=== PATIENT | female | born 1955 | race Caucasian/White ===

== ENCOUNTER 2025-08-08 13:00 | Inpatient (IN) | payer MEDICARE, OTHER, SELFPAY ==
[2025-08-08] VITALS (44 sets, daily range): BP systolic 108–157; BP diastolic 58–113; PULSE 50–87; RESP 16–27; TEMP 36.1–37; O2SAT 84–100; BMI 42.0
--- NOTE | 2025-08-08 12:50 | ECG_ITS ---
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 Measurements Intervals [place] Rate: 72 P: 0 NY: 0 QRS: -62 QRSD: 96 T: -15 QT: 364 QTc: 399 Interpretive Statements ATRIAL FIBRILLATION WITH ABERRANT CONDUCTION OR VENTRICULAR PREMATURE COMPLEXES LEFT AXIS DEVIATION [QRS AXIS < -30] PATTERN CONSISTENT WITH PULMONARY DISEASE INCOMPLETE RIGHT BUNDLE BRANCH BLOCK [90+ ms QRS DURATION, TERMINAL R IN V1/V2, 40+ ms S IN I/aVL/V4/V5/V6] SEPTAL MYOCARDIAL INFARCTION , OF INDETERMINATE AGE [40+ ms Q WAVE IN V1/V2] High lateral wall LA ST DEPRESSION, CONSIDER SUBENDOCARDIAL INJURY [0.1+ mV ST DEPRESSION] No previous ECG available for comparison Electronically Signed On 08-09-2025 17:29:10 UNIT SECRETARY by Hebert Alejandra M.D. [email or web address]
--- NOTE | 2025-08-08 13:01 | XACV_ITS ---
Exam Room: [facility] Ht: 152 cm Wt: 96 kg BSA: 2.07 m2 Gender: Female : 1955 Any Known Allergies: No known allergies Exam Priority: Routine Indication(s): - Acute anterior wall VA Procedure(s): Procedure Description: Diagnostic procedure Procedure Description: PCI procedure Procedure Description: Left Heart Catheterization Procedure Description: Left ventriculography Procedure Description: Drug Eluting Coronary Stent Procedure Description: PTCA Procedure Description: Coronary Thrombectomy Procedure Description: Miscellaneous Procedure Description: ACT Procedure Description: Coronary Angiography Diagnostic Cath Status: Emergency Diagnostic Findings * Left Main has no disease. * Circumflex has no disease. * Proximal Left Anterior Descending to Mid Left Anterior Descending: total occlusion, KESHA: 0 flow. * Mid Left Anterior Descending: total occlusion, KESHA: 0 flow. * Mid Right Coronary Artery: mild 40% stenosis, KESHA: 3 flow. * 1st Diagonal: total occlusion, KESHA: 0 flow. * Coronary angiography shows right dominance. PCI Status: Emergency PCI Indication: STEMI - Immediate PCI for STEMI Interventional Findings * Proximal Left Anterior Descending to Mid Left Anterior Descendin% stenosis treated with a AB TREK 2.50X12 RX BALLOON, MDT R MAXWELL 3.0X15 GUILLE, and MDT NC EUPHORA RX [id number] BALLOON. 0% residual stenosis, KESHA: 3 flow. * Mid Left Anterior Descendin% stenosis treated with a MDT R MAXWELL 2.5X30 GUILLE, and MDT NC EUPHORA RX [id number] BALLOON. 0% residual stenosis, KESHA: 3 flow. Conclusions 1. There is total occlusion coronary artery disease with two vessel disease. 2. The septal and anterior rizzo are akinetic. 3. The apex in the VILLALTA view is akinetic. 4. Severe left ventricular systolic dysfunction. Ejection fraction of 20%. 5. Proximal Left Anterior Descending to Mid Left Anterior Descending was treated with a Balloon, Drug Eluting Stent, and Balloon. 6. Mid Left Anterior Descending was treated with a Drug Eluting Stent, and Balloon. Recommendations * 1-Return to inpatient for close monitoring and routine cath care 2-Risk factor modification for secondary prevention 3-Statin and aspirin 81 mg life-long, if tolerated 4-Patient was pre-loaded with 600 mg of Plavix, continue Plavix 75mg p.o. daily for at least one year. We will assess at the end of one year again to continue if further or not 5-Continue optimal medical management 6-Follow up with Dr. Gracia in four weeks and your primary care in 10 days. Diagnostic RX Recommendation: PCI w/o planned CABG LV EDP: 42 mmHg Ventriculography Ejection Fraction: 20.0 % Pressures Phase:Rest AO : 113 / 83 ( 99 ) @ 1:30:00 PM 107 / 88 ( 95 ) @ 1:34:00 PM 128 / 82 ( 103 ) @ 1:44:00 PM 121 / 77 ( 98 ) @ 1:57:00 PM 115 / 77 ( 94 ) @ 2:06:00 PM 122 / 85 ( 97 ) @ 2:13:00 PM 130 / 73 ( 98 ) @ 2:20:00 PM 133 / 70 ( 99 ) @ 2:20:00 PM LV : 131 / 18 / 42 @ 2:19:00 PM 134 / 22 / 48 @ 2:20:00 PM 130 / 15 / 45 @ 2:20:00 PM Valves Phase:DefaultPhase AV : 0.0 @ 2:30:20 PM AV Mean Gradient: 0.0 @ 2:30:20 PM Clinical Evaluation EBL: 5mL-10mL Procedural Details Procedure Consent Obtained. Current Diagnosis : STEMI. Pre-Procedure Time Out. Identified patient by full name and date of as verbalized by the patient/guarantor. Does the consent match the physician's order: N/A Emergent. Accurate & Complete Informed Consent: N/A Emergent. Inpatient/Outpatient History & Physical on Chart: N/A Emergent. If H&P is completed, is and addenduem needed: N/A Emergent; If yes, is the addendum complete: N/A Emergent. Visualize and Verify Site with Patient/Guarantor: N/A. Relevant Radiology Images available: N/A Emergent. Pre-op teaching completed and patient verbalized understanding. The risks, benefits, and alternatives of sedation and/or procedure were discussed by physician. The patient agrees to continue. Procedure started. [facility] Clinical Fraility Score: 4: Vulnerable. 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 Chest Pain Symptom Assessment: Typical Angina Symptoms. Cardiovascular Instability: Yes, if yes, Persistant Ischemic Symptoms. Correct patient, site and procedure confirmed by cath team. Current diagnosis: STEMI. PERRLA. 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 Lungs clear x 5 lobes. IV Site on Arrival: 20 gauge in the right anticubital. IV Fluids: 0.9% NaCl at KVO. 0 mL infused prior to slab lifting supervisor. Oxygen started at 2liters/min via nasal canula. bilateral groins was prepped with chloroprep then draped in the usual sterile fashion. right radial was prepped with chloroprep then draped in the usual sterile fashion. Physician arrived. Baseline sample Acquired. HR: 64 BPM. AP Pads placed on the patient. Physician scrubbed in. Immediate Pre-Procedure Time Out. Correct Patient: N/A Emergent; Correct Procedure: N/A Emergent; Correct Site: N/A Emergent; Correct Patient Position: N/A Emergent; Correct Supplies: N/A Emergent; Dried Flammable Prep: N/A Emergent; Blood Products Available: N/A Emergent;. Lidocaine 1% infiltrated to the right radial. Arterial access obtained. A 5 st helenian TIG catheter in over wire. Multiple views taken of left coronary artery. Catheter redirected to the RCA. Multiple views taken of right coronary artery. Catheter removed over the exchange wire. 6 st helenian XB 3 guide catheter was inserted over the wire. PCI Indication: STEMI. Patient's family updated. Guide catheter out. 6 st helenian JL 3.5 guide catheter was inserted over the wire. PCI Indication : Immediate PCI for STEMI. Guide catheter out. Lidocaine 1% infiltrated to the right groin. Arterial access obtained with micropuncture set. 6 st helenian XB 3 guide catheter was inserted over the wire. Runthrough guidewire was advanced through the guide catheter to lesion in the mid Circ. A second runthrough guidewire was advanced through the guide catheter to lesion in the prox LAD. Inflation number : 1 A AB TREK 2.50X12 RX BALLOON was prepped and advanced across the Prox LAD , then inflated to 12 COURTNEY for 0:12 seconds. Inflation number: 2 The AB TREK 2.50X12 RX BALLOON was reinflated across the Prox LAD, to 12 COURTNEY for 0:09 seconds. Inflation number: 3 The AB TREK 2.50X12 RX BALLOON was reinflated across the Prox LAD, to 14 COURTNEY for 0:09 seconds. Monitoring of procedure taken over by Lokesh henderson [facility] at this time. Results checked. Balloon out. 2nd Runthrough wire in circumflex out. Admit Source: Emergency department. Pronto aspiration catheter in over the runthrough wire. Manual aspiration performed of LAD. Pronto catheter out. Results checked. Stent inserted to lesion in the mid LAD. Inflation Number : 1 A MERI Anton MAXWELL 2.5X30 GUILLE -Lot Number# [id number] Exp 12/24/2026 was prepped and advanced across the Mid LAD. The stent was deployed at 12 COURTNEY for 0:30 seconds. Stent balloon out over wire. Pt family updated by Monserrat Blount RN. Stent inserted to lesion in the prox LAD. Inflation Number : 4 A MERI Anton MAXWELL 3.0X15 GUILLE -Lot Number# [id number] Exp 02/06/2028 was prepped and advanced across the Prox LAD. The stent was deployed at 7 COURTNEY for 0:23 seconds. Results checked. Stent balloon out over wire. Inflation number : 2 A MDT NC EUPHORA RX [id number] BALLOON was prepped and advanced across the Mid LAD , then inflated to 12 COURTNEY for 0:17 seconds. Balloon inserted to lesion in the mid LAD. Inflation number: 3 The MDT NC EUPHORA RX [id number] BALLOON was reinflated across the Mid LAD, to 10 COURTNEY for 0:10 seconds. Inflation number: 4 The MDT NC EUPHORA RX [id number] BALLOON was reinflated across the Mid LAD, to 12 COURTNEY for 0:17 seconds. Inflation number: 5 The MDT NC EUPHORA RX [id number] BALLOON was reinflated across the Mid LAD, to 14 COURTNEY for 0:17 seconds. Results checked. Balloon out. Balloon inserted to lesion in the prox LAD. Inflation number : 5 A MDT NC EUPHORA RX [id number] BALLOON was prepped and advanced across the Prox LAD , then inflated to 12 COURTNEY for 0:14 seconds. Inflation number: 6 The MDT NC EUPHORA RX [id number] BALLOON was reinflated across the Prox LAD, to 16 COURTNEY for 0:17 seconds. Balloon out. Results checked. Guide catheter and Runthrough wire out. A 5 st helenian Angled Pig catheter in over wire. Pigtail catheter advanced across the LV. ACT drawn. Results 322 seconds. Therapeutic limits - pre-heparin administration 90-150 seconds and monitoring heparin during a vascular procedure >250 seconds. EDP Sample taken: LV 131/18,42; HR: 73 BPM; SpO2: 89%. Hand injection performed through the pigtail catheter. EDP Sample taken: LV 134/22,48; HR: 69 BPM; SpO2: 88%. Pullback taken: LV 130/15,45; AO 130/73(98); Mean: 0mmHg, Peak to Peak: 0mmHg, SEP: 6sec/min; HR: 69 BPM; SpO2: 88%. Catheter out. A Right femoral angiogram was performed to determine safe placement of closure device. A TR Band was successful obtaining hemostatsis at the Right Radial artery insertion site. A Suture was successful obtaining hemostatsis at the Right Femoral artery insertion site. Physician scrubbed out. Sheath(s) sutured into position with 2-0 silk and sterile 4x4's and Op-site applied over the site. No oozing or signs and symptoms of hematoma noted. Arterial sheath flushed and connected to tranducer and pressure bag with heparinized saline. Post Procedure: Pulses reassessed and unchanged. PERRLA. 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 No VTE prophylaxis required. Medication's Wasted: Other = Versed 1 mg. Medication's Wasted: Heparin = 4000 u. Medication's Wasted: Lidocaine 1% = 5 mL. Medication's Wasted: Nitro = 49.8 mg. Medication's Wasted: Other = Fentanyl 50 mcg. Total IV fluids: 50 mL. Post-op diagnosis: STEMI, 100% ostial occluded LAD x2 GUILLE, Good angiographic result. Complications: none. Estimated blood loss: 5mL-10mL. Responsiveness - Normal response to verbal stimuli; alert and oriented, PERRLA. Airway - Unaffected, no intervention required; spontaneous ventilation. Circulation: W/N/L, pulses unchanged. Nausea/Vomiting: No. Procedure completed. Patient transferred by bed to ICU. Vital chart was stopped. Access Site Site: Right Radial artery Sheath Size: 6 Fr Hemostasis Method: TR Band Hemostasis Success: Successful Site: Right Femoral artery Sheath Size: 6 Fr Hemostasis Method: Suture Hemostasis Success: Successful Procedure Medications Start: 1:22 PM Stop: 1:22 PM Medication: Versed Amount: 1 mg Route: I.V. Start: 1:23 PM Stop: 1:23 PM Medication: Zofran (ondansetron) Amount: 4 mg Route: I.V. Start: 1:27 PM Stop: 1:27 PM Medication: Nitrogylcerin Amount: 200 mcg Route: I.A. Start: 1:31 PM Stop: 1:31 PM Medication: Heparin Amount: 5000 units Route: I.V. Start: 1:37 PM Stop: 1:37 PM Medication: Fentanyl Amount: 50 mcg Route: I.V. Start: 1:55 PM Stop: 1:55 PM Medication: Aggrastat 12.5 mg/250 mL Amount: 48 ml Route: I.V. bolus Start: 1:57 PM Stop: 1:57 PM Medication: Aggrastat 12.5 mg/250 mL Amount: 17.3 ml/hr Route: I.V. drip Start: 2:21 PM Stop: 2:21 PM Medication: Lasix (furosemide) Amount: 60 mg Route: I.V. I, the attending physician, have reviewed and verified all procedure medications. Yes, all medications given per verbal order History/Risk Factors Hypertension: No Dyslipidemia: No Peripheral Arterial Disease (PAD): No Myocardial Infarction (VA): No Obesity: Yes Renal Disease: No Prior Interventions PCI: No CABG: No Valve Surgery: No Report Signatures Finalized by Cruz Gracia MD on 08/12/2025 02:59 PM
--- NOTE | 2025-08-08 13:10 | W.ED.CHESTPA ---
HPI - Chest Pain General: Stated Complaint: Chest Pain Source: patient and EMS Mode of arrival: EMS Limitations: no limitations History of Present Illness: 70-year-old female having chest pain starting today. She states that pains been a pressure type pain in the center of her chest patient is a STEMI alert by EMS she has received nitro aspirin along with morphine. She states she continues to have pain she denies any fevers Related Data Home Medications ?Medication ?Instructions ?Recorded ?Confirmed levothyroxine 125 mcg capsule 125 mcg PO DAILY 11/25/20 10/05/24 Previous Rx's ?Medication ?Instructions ?Recorded albuterol sulfate 90 mcg/actuation 1 inh inhalation QID PRN shortness 10/05/24 aerosol inhaler of breath or wheezing #6.7 grams fluticasone propionate 50 2 spray intranasal DAILY #16 grams 10/05/24 mcg/actuation nasal spray,suspension (Flonase Allergy Relief) prednisone 20 mg tablet 40 mg (2 x 20 mg) PO DAILY 5 days 10/05/24 #10 tabs Allergies Allergy/AdvReac Type Severity Reaction Status Date / Time No Known Allergies Allergy Verified 10/05/24 16:05 Review of Systems Card: Reports: chest pain [facility] ED PFSH: Social History Smoking and tobacco/nicotine status: never used tobacco/nicotine Physical Exam Const: COMMON NORMALS: patient oriented x3 and healthy appearing HENMT: COMMON NORMALS: normocephalic and atraumatic HEAD & SCALP: normocephalic and atraumatic Eye: COMMON NORMALS: conjunctivae normal CONJUNCTIVA: Yes conjunctivae normal Neck/C-Spine: COMMON NORMALS: full ROM and supple Chest: COMMONS NORMALS: normal inspection of the chest and normal palpation of entire chest wall Resp: COMMON NORMALS: normal respiratory effort, No retractions, No use of accessory muscles and clear to auscultation bilaterally AUSCULTATION: clear to auscultation bilaterally Cardio: COMMON NORMALS: regular rate, regular rhythm and No murmurs present (Cardio) RATE: regular rate RHYTHM: regular rhythm Extremity: COMMON NORMALS: normal to inspection and full ROM Neuro: COMMON NORMALS: patient oriented x3, moves all extremities and no focal motor deficits Psych: COMMON NORMALS: mental status grossly normal, Normal thought process present and cooperative THOUGHT PROCESS: Normal thought process present Skin: COMMON NORMALS: no rashes or lesions noted and no wounds GENERAL SKIN EXAM: no rashes or lesions noted MDM - Chest Pain Medical Decision Making Patient presents for chest pain STEMI was alerted by EMS in the field EKG here is consistent with ST elevation I have spoke to manager benefit Dr. Polo who is in the ER currently and is going to take patient to the [employer] [facility]. Patient had already received aspirin and route did give her Plavix along with heparin I did interpret her EKG here at 1305 showed normal sinus rhythm heart rate [address] elevation in aVL along with V1 and V2 with depressions in leads II and III and aVF Medical Records I reviewed the patient's medical records. All radiology interpretation(s) finalized by discharge Discharge Plan Discharge Patient Disposition: Admitted As Inpatient Clinical Impression: ST elevation (STEMI) myocardial infarction Condition: Stable Coding Level of Care Code ED Multi Spindle Operator for Chg Fwpreet Heart Score HEART Score Components History: Highly Suspicious EKG: Significant ST-deviation Age: 65 or more yrs Risk Factors: 1 or 2 Risk Factors Troponin: Baseline Trop >45 ng/L HEART Score RESULT HEART Score: 9
[2025-08-08] MEDS: heparin 5,000 unit/mL INJ 1 mL 4000 UNIT IVP (13:12)
--- NOTE | 2025-08-08 13:12 | PM.HP ---
Providers/Chief Complaint Admitting Physician: Cruz Gracia MD Primary Care Provider: Norma Retana DO Chief Complaint: Chest Pain History of Present Illness Yaritza Hernandez is a 70 year old female past medical history significant for hypothyroidism obesity denies any prior history of tobacco started having chest pain around noon, pain over next 30 minutes became more severe and intense therefore she called EMS. Twelve-lead EKG was concerning for ST elevation in the high lateral leads with reciprocal inferior ST depression. STEMI alert was called. I saw the patient in the ER upon arrival. Patient is being loaded with 600 mg of Plavix and 4000 units of heparin. Will proceed with urgent left heart cath/PCI if indicated Medications/Allergies Home Medications ?Medication ?Instructions ?Recorded ?Confirmed ?Last Taken ?Type levothyroxine 125 mcg capsule 125 mcg PO DAILY 11/25/20 10/05/24 Unknown History albuterol sulfate 90 mcg/actuation 1 inh inhalation QID PRN shortness 10/05/24 10/05/24 Unknown Rx aerosol inhaler of breath or wheezing #6.7 grams fluticasone propionate 50 2 spray intranasal DAILY #16 grams 10/05/24 10/05/24 Unknown Rx mcg/actuation nasal spray,suspension (Flonase Allergy Relief) prednisone 20 mg tablet 40 mg (2 x 20 mg) PO DAILY 5 days 10/05/24 10/05/24 Unknown Rx #10 tabs Allergies Allergy/AdvReac Type Severity Reaction Status Date / Time No Known Allergies Allergy Verified 10/05/24 16:05 PFSH Acute PFSH: Medical History (Updated 08/08/25 @ 13:15 by Cruz Gracia MD) Obesity Hypothyroid Social History Smoking and tobacco/nicotine status: never used tobacco/nicotine Vitals/I&O/Wt Last Vital Signs Temp 97.8 F 08/08/25 13:04 Pulse 72 08/08/25 13:04 Resp 20 H 08/08/25 13:04 Pulse Ox 89 L 08/08/25 13:04 O2 Del Method Room Air 08/08/25 13:04 Weight last 48 hrs Weight 211 lb Weight 211 lb Physical Exam Const: OTHER: GENERAL: Patient is alert, awake and oriented x3. Moderate distress HEART: Regular S1 and S2. No murmur, rub or gallop. LUNGS: Clear to auscultate bilaterally. CENTRAL NERVOUS SYSTEM: Grossly nonfocal. EXTREMITIES: Lower extremities with out edema bilaterally. A&P Assessment and plan 1. ST elevation (STEMI) myocardial infarction: 2. Hypothyroid: 3. Obesity: Plan: Will proceed with urgent left heart cath/PCI if indicated. Treatment as per ACS protocol is initiated. Further plan will be devised as per progress of the patient PDMP PDMP Reviewed: Not Reviewed Attestations Medical Necessity Statement*: I am expecting her stay to cross more than 2 midnights Coding Level of Care Code Acute Code for Chg Fwd Diagnoses ST elevation (STEMI) myocardial infarction I21.3 Hypothyroid E03.9 Obesity E66.9
[2025-08-08] MEDS: morphine 4 mg/mL SDV 1 mL IVP (13:13)
[2025-08-08 13:20] LABS: Hematocrit 44.6 % (36-47); Hemoglobin 14.00 g/dL (11.27-16.99); Mean Corpuscular HGB Conc 31.4 g/dL (30-55); Mean Corpuscular Hemoglobin 27.6 pg (27-33); Mean Corpuscular Volume 87.8 fl (85-98); Nucleated Red Blood Cells % 0 %; Platelet Count 258 10^3/cmm (157-399); Red Blood Count 5.08 10^6/uL (3.85-5.65); White Blood Count 11.78 10^3/uL (3.29-11.43)
[2025-08-08 13:41] LABS: Alanine Aminotransferase 18 U/L (0-33); Albumin Level 4.3 g/dL (3.5-5.2); Alkaline Phosphatase 94 U/L (35-105); Anion Gap 17.9 (5-19); Aspartate Amino Transferase 19 U/L (0-32); Blood Urea Nitrogen 14 mg/dL (8-23); Calcium 9.2 mg/dL (8.5-10.5); Carbon Dioxide 22 mmol/L (22-29); Chloride 103 mmol/L (98-107); Globulin 2.1 g/dL (1.3-4.6); Glucose 137 mg/dL (65-115); Lipase 27 U/L (13-60); Osmolality Calculated 289 mOsm/kg (285-295); Potassium 4.9 mmol/L (3.5-5.1); Sodium 138 mmol/L (136-145); Total Protein 6.4 g/dL (6.6-8.7)
[2025-08-08 13:42] LABS: Troponin(5th) Baseline 13 ng/L (0-10)
--- NOTE | 2025-08-08 14:27 | PC.RESP ---
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
--- NOTE | 2025-08-08 14:32 | USCV_ITS ---
Yaritza Hernandez Age: 70 Gender: F : 1955 Exam Date: 08/08/2025 18:41 Ordering Phys: Cruz Gracia MD ([email or web address]) Technologist: ADRIANA Exam Location: [facility] [place] Indication: post cardiac catheterization. s/p STEMI BP: 145 / 84 HR: 53 Rhythm: Sinus bradycardia with occasional strings of Afib Technical Quality: Adequate MEASUREMENTS (Male / Female) Normal Values 2D ECHO LV Diastolic Diameter PLAX 4.6 cm 4.2 - 5.9 / 3.9 - 5.3 cm IVS Diastolic Thickness 1.2 cm 0.6 - 1.0 / 0.6 - 0.9 cm IVS Systolic Thickness 2.0 cm LVPW Diastolic Thickness 1.1 cm 0.6 - 1.0 / 0.6 - 0.9 cm LVPW Systolic Thickness 1.4 cm LVOT Diameter 1.6 cm LV Ejection Fraction 2D Teich 58.5 % LV Ejection Fraction MOD 4C 34.0 % LV Ejection Fraction MOD 2C 47.2 % LV Ejection Fraction 2C AL 46.5 % LA Diameter 3.9 cm Aorta at Sinotubular Diameter 2.1 cm IVC Diameter 1.5 cm M-MODE LA Ao Ratio MM 1.7 AV Cusp Separation MM 1.7 cm DOPPLER AV Peak Velocity 130.0 cm/s LVOT Peak Velocity 91.0 cm/s AV Area Cont Eq vti 1.5 cm squared AV Area Cont Eq pk 1.5 cm squared MV Peak Velocity 93.0 cm/s MV Area PHT 3.5 cm squared Mitral E to A Ratio 1.2 TV Peak E Velocity 38.0 cm/s PV Peak Velocity 98.0 cm/s FINDINGS Left Ventricle Mildly increased left ventricular cavity size. Severely decreased left ventricular systolic function. Left ventricular ejection fraction is estimated at 30 %. There is mid to distal anterior apical akinesis suggestive of lesion in LAD territory.Grade II/IV diastolic dysfunction, moderately elevated filling pressures. Right Ventricle Normal right ventricular size and systolic function. Right Atrium Normal right atrial size. Left Atrium Normal left atrial size. IA Septum Normal appearance of the interatrial septum. Mitral Valve Moderately thickened mitral valve. No mitral valve stenosis. Moderate mitral annular calcification. Trace mitral valve regurgitation. Aortic Valve Moderate aortic valve calcification. No aortic valve stenosis. Trace aortic valve regurgitation. Tricuspid Valve Normal tricuspid valve structure. No tricuspid valve stenosis or regurgitation. Normal pulmonary pressure. Pulmonic Valve Normal pulmonic valve structure. No pulmonic valve stenosis or regurgitation. Pericardium No pericardial effusion. Aorta Normal diameter of the aortic root and ascending thoracic aorta. IVC Normal IVC diameter. CONCLUSIONS Mildly increased left ventricular cavity size. Severely decreased left ventricular systolic function. Left ventricular ejection fraction is estimated at 30 %. There is mid to distal anterior apical akinesis suggestive of lesion in LAD territory.Grade II/IV diastolic dysfunction, moderately elevated filling pressures. Moderate aortic valve calcification. No aortic valve stenosis. Trace aortic valve regurgitation. There is no pericardial effusion. Right atrial pressure is around 10 mm of mercury. Cruz Gracia MD (Electronically Signed) Final Date: 09 August 2025 07:27 S
--- NOTE | 2025-08-08 14:59 | ECG_ITS ---
[facility] Date: 2025-08-08 Pat Name: Yaritza Hernandez Department: Room: ICU01 Gender: Female [employer]: : 1955 Requested By: Cruz Gracia Order Number: [id number] Sammy MD: Hebert Alejandra M.D. Measurements Intervals [place] Rate: 74 P: 89 NY: 154 QRS: -72 QRSD: 112 T: 96 QT: 355 QTc: 395 Interpretive Statements SINUS RHYTHM LEFT ANTERIOR FASCICULAR BLOCK [QRS AXIS <= -45, QR IN I, RS IN II] ANTEROLATERAL MYOCARDIAL INFARCTION , PROBABLY RECENT [40+ ms Q WAVE IN I/aVL/V3-V6] ACUTE HI INTERPRETATION BASED ON A DEFAULT AGE OF 40 YEARS Compared to ECG 08/08/2025 13:05:50 Left anterior fascicular block now present. Atrial fibrillation no longer present Ventricular premature complex(es) no longer present Aberrant conduction of supraventricular beat(s) no longer present Incomplete right bundle-branch block no longer present Myocardial infarct finding still present Electronically Signed On 08-09-2025 17:50:02 EDGE GLUE MACHINE TENDER by Hebert Alejandra M.D. [id number]
[2025-08-08] MEDS: FUROsemide 10 mg/mL SDV 4mL 40 MG IVP (15:02)
[2025-08-08 16:11] LABS: Troponin(5th) Baseline 3340 ng/L (0-10)
--- NOTE | 2025-08-08 16:48 | PC.NURSE ---
Aggrastat drip finished at 1630.
--- OUTSIDE RECORDS SUMMARY | 2025-08-08 17:18 | XMS_ITS | Clinical Summary ---
Author Organization [facility] Address [address] [facility] Attn: [place] [address] Care Team Providers Care Design Sales Consultant Name Role Phone Naga Sandhu MD Primary Care Provider [phone] Allergies No known active allergies Medications triamcinolone acetonide (KENALOG) 0.5 % OintmentIndicatio ns:Irritant contact dermatitis due to other chemical products,Urticari a,Contact dermatitis, unspecified contact dermatitis type, unspecified trigger Apply to affected area 2 times daily. 60 Gram 2 2 Active fluticasone propionate (FLONASE) 50 mcg/spray [place], Suspension nasal inhaler Administer 2 Sprays in each nostril daily. shake before using 5 Active diazePAM (VALIUM) 5 mg tabletIndications :RLS (restless legs syndrome) Take 1 Tablet (5 mg) by mouth nightly as needed for Anxiety. 30 Tablet 5 Active levothyroxine 137 mcg tabletIndications :Hypothyroidism due to acquired atrophy of thyroid TAKE 1 TABLET(137 MCG) BY MOUTH DAILY IN THE MORNING 90 Tablet 3 5 Active lidocaine/hydroco rtisone ac (lidocaine HCl-hydrocortison ac) 3 %-2.5 % (7 gram) GelIndications:Ex ternal hemorrhoid Insert 1 Applicator by rectum 2 times daily as needed for Pain or Other (See Comment). 1 Each 5 5 Active albuterol sulfate HFA 90 mcg/actuation aerosol inhalerIndication s:Severe persistent asthma without complication (CMS/HCC) Take 2 Puffs by inhalation every 6 hours as needed for Shortness of Breath. 8.5 Gram 5 Active fluticasone propion-salmetero L (Advair HFA) 45-21 mcg/actuation HFA Aerosol InhalerIndication s:Severe persistent asthma without complication (CMS/HCC) Take 2 Puffs by inhalation every 12 hours. 8 Gram 5 5 Active Active Problems Problem Noted Date Diagnosed Date Hypothyroidism 08/11/2016 External hemorrhoid 05/09/2015 Morbid obesity with BMI of 40.0-44.9, adult 04/2015 Lower leg edema 04/16/2014 RLS (restless legs syndrome) 04/16/2014 Asthma 03/25/2010 Encounters Date Type Department Care Team Description 07/17/2025 External Device Data [facility] ABSTRACTION Provider, Abstract 06/20/2025 External Device Data [facility] ABSTRACTION Provider, Abstract 06/15/2025 Medication Prior Auth Encounter [facility] [address] [place] [address] [place] [address] Shantell Chanel, PHARMACIST 06/14/2025 Medication Prior Auth Encounter [facility] [address] [place] [address] [place] [address] Shantell Chanel, PHARMACIST Severe persistent asthma without complication (CMS/HCC) (Primary Dx) 06/14/2025 Results Follow-Up [address] [phone] Pearl Coy FNP TSH, T4 FREE 06/13/2025 1:00 PM CDT Office Visit [address] [phone] Hypothyroidism, unspecified type (Primary Dx); Severe persistent asthma without complication (CMS/HCC); Morbid obesity with BMI of 40.0-44.9, adult; Elevated blood pressure reading without diagnosis of hypertension; Screening mammogram, encounter for; Need for pneumococcal vaccine; Need for influenza vaccination; Other buttermaker helper (current) drug therapy; Mild intermittent asthma, unspecified whether complicated 05/15/2025 External Device Data [facility] ABSTRACTION Provider, Abstract from Last 3 Months Immunizations Immunization Administration Dates Next Due (PREVNAR 20)(6 WKS UP) PNEUM OCOCCAL CONJUGATE VACCINE 20-VALENT (PCV20), POLYSACCHARIDE [id number] CONJUGATE, ADJUVANT 0.5 ML (PF) IM 06/13/2025 (SPIKEVAX) (12 YRS UP PRIMAR Y SERIES) COVID-19 VACCINE - [id number](PF) 100 MCG/0.5 ML IM SUSP 01/31/2021,12/18/2020 INFLUENZA VACCINE HIGH DOSE QUADRIVALENT 65 YR UP PF IM 06/16/2022 INFLUENZA VACCINE HIGH DOSE TRIVALENT SPLIT VIRUS, (65 YR UP), 0.5ML (PF), IM 06/13/2025 INFLUENZA VACCINE QUADRIVALENT 6 MOS UP PF IM ,07/02/2021 Family History Medical History Relation Name Comments Other Father Diabetes Mother Breast Cancer Neg Hx Relation Name Status Comments Father Mother Alive Social History Tobacco Use Types Packs/Day Years Used Date Smoking Tobacco: Former Cigarettes 0.3 Q uit: 02/28/2012 Smokeless Tobacco: Never Tobacco Cessation:Counseling Given: Not Answered Alcohol Use Standard Drinks/Week Comments Yes 0.8 (1 standard drink = 0.6 oz p ure alcohol) Financial Resource Strain Answer Date R ecorded How hard is it for you to pa y for the very basics like food, housing, medical care, and heating? Not hard at all 06/16/2022 Food Insecurity Answer Date Recorded In the past 12 months, have you worried that your food would run out before you had money to buy more? Never true 06/16/2022 In the past 12 months, did y ou run out of food and didn't have money to buy more? Never true 06/16/2022 Transportation Needs Answer Date Record ed In the past 12 months, has l ack of transportation kept you from medical appointments or from getting medications? No 06/16/2022 Lack of Transportation (Non-Medical) Not on file 06/16/2022 Comments No Sex and Gender Information Value Date Recorded Sex Assigned at Not on file Legal Sex Female 2:13 AM METHODOLOGIST Gender Identity Not on file Sexual Orientation Not on file Last Filed Vital Signs Vital Sign Reading Time Taken Comments Blood Pressure 158/58 06/13/2025 1:00 PM CDT Pulse 56 06/13/2025 12:57 PM CDT Temperature 36.5 C (97.7 F) 06/13/2025 12:57 PM CDT Respiratory Rate 16 11/21/2024 3:12 PM CDT Oxygen Saturation 92% 06/13/2025 12:57 PM CDT Inhaled Oxygen Concentration - - Weight 95.3 kg (210 lb 3.2 oz) 06/13/2025 12:57 PM CDT Height 152.4 cm (5') 06/13/2025 12:57 PM CDT Body Mass Index 41.05 06/13/2025 12:57 PM CDT Plan of Treatment Upcoming Encounters Date Type Department Care Team (Late st Contact Info) Description 12/25/2025 10:20 AM CDT Office Visit [address] [phone] Naga Sandhu MD [address] [place] [phone] Health Maintenance Due Date Last Done Comments Pre-Diabetes and Diabetes Screening 1955 FIT/FOBT Q 1 YEAR (AUTO ORDER) 1974 DTAP/TDAP/TD VACCINES (1 - Tdap) 1975 COLORECTAL CANCER SCREENING (AUTO ORDER) 2001 COLORECTAL SCREENING 2001 FIT/FOBT Q 1 year 2001 Flex Sig/CT Colonography Q 5 years 2001 RSV VACCINE (60+ or ) (1 - Risk 50-74 years 1-dose series) 2006 ZOSTER VACCINE (1 of 2) 2006 BREAST CANCER SCREENING 08/01/2013 08/01/20 12, 2011, 04/23/2010, Additional history exists OSTEOPOROSIS SCREENING 2021 COVID-19 Vaccine (3 - 2024-2 6 season) 2025 01/31/2021, 12/18/2020 Traditional Medicare (ACO) A nnual Wellness Visit 11/22/2025 11/21/2024, 09/28/2023, 06/16/2022 Colorectal Cancer Screening 10/16/2027 FIT-DNA Q 3 years 10/16/2027 10/16/2024 FIT/ DNA Q 3 YEARS (AUTO ORDER) 10/16/2027 , 10/15/2024 Colorectal Cancer Screening (AUTO ORDER) 10/15/2029 FLEX SIG/CT COLONOGRAPHY Q 5 YEARS (AUTO ORDER) 10/15/2029 10/15/2024, 10/15/2024 INFLUENZA VACCINE Completed 06/13/2025, , 06/16/2022, Additional history exists PNEUMOCOCCAL VACCINE 50+ YEARS Completed 06/13/2025 Procedures Procedure Name Priority Date/Time Associated Diagnosis Comments T4 FREE Routine 06/13/2025 1:39 PM CDT Hypothyroidism, unspecified type TSH Routine 06/13/2025 1:39 PM CDT Hypothyroidism, unspecified type COLON CANCER SCREEN, STOOL DNA Routine 10/16/2024 1:15 AM METHODOLOGIST Encounter for colorectal cancer screening MAMMO SCREEN BILAT W OR WO CAD Routine 08/01/2012 9:46 AM METHODOLOGIST Other screening mammogram from Last 3 Months or Most Recently Relevant to Health Maintenance Results * TSH (06/13/2025 1:39 PM CDT) TSH 2.69 0.40 - 4.50 mIU/L [facility] Comment: FASTING:NO FASTING: NO Test Performed at: [facility] [id number] [place], [place] [address] [address] Mark Hand MD Blood 06/13/2025 1:39 PM CDT 06/13/2025 1:39 PM CDT us Pearl BLUE CHEMISTRY ORDERABLES Final Res ult [facility] [phone] [facility] [id number] [place] [phone] * T4 FREE (06/13/2025 1:39 PM CDT) [facility] T4 FREE 1.3 0.8 - 1.8 ng/dL [facility] Comment: Test Performed at: [facility] [address] [phone] Mark Hand MD Blood 06/13/2025 1:39 PM CDT 06/13/2025 1:39 PM CDT Pearl [employer] SEO COORDINATOR CHEMISTRY ORDERABLES Final Res ult [facility] [phone] [facility] [id number] [phone] * COLON CANCER SCREEN, STOOL DNA (10/16/2024 1:15 AM METHODOLOGIST) [facility] COLOGUARD RESULT Negative Negative [facility] Comment: NEGATIVE TEST RESULT. A negative Cologuard result indicates a low likelihood that a colorectal cancer (CRC) or advanced adenoma (adenomatous polyps with more advanced pre-malignant features) is present. The chance that a person with a negative Cologuard test has a colorectal cancer is less than 1 in 1500 (negative predictive value >99.9%) or has an advanced adenoma is less than 5.3% (negative predictive value 94.7%). These data are based on a prospective cross-sectional study of 10,000 individuals at average risk for colorectal cancer who were screened with both Cologuard and colonoscopy. (Willian Scott al, N Engl J Med 2014;370(14):9253-9207) The normal value (reference range) for this assay is negative. COLOGUARD RE-SCREENING RECOMMENDATION: Periodic colorectal cancer screening is an important part of preventive healthcare for asymptomatic individuals at average risk for colorectal cancer. Following a negative Cologuard result, the [place] [employer] Society and U.S. Multi-Society Task Force screening guidelines recommend a Cologuard re-screening interval of 3 years. References: [place] [employer] Guideline for Colorectal Cancer Screening: https://www.cancer.org/cancer/tgfyi-clqhfu-mnazug/zuzkjypah-rklfrvnib-agxdxro/ac s-rec ommendations.html.; Han DK, Pat CR, Daksha GarciaK, Colorectal Cancer Screening: Recommendations for Physicians and Patients from the U.S. Multi-Society Task Force on Colorectal Cancer Screening , Am J Gastroenterology 2017; 112:0870-0901. TEST DESCRIPTION: Composite algorithmic analysis of stool DNA-biomarkers with hemoglobin immunoassay. Quantitative values of individual biomarkers are not reportable and are not associated with individual biomarker result reference ranges. Cologuard is intended for colorectal cancer screening of adults of either sex, 45 years or older, who are at average-risk for colorectal cancer (CRC). Cologuard has been approved for use by the U.S. FDA. The performance of Cologuard was established in a cross sectional study of average-risk adults aged 50-84. Cologuard performance in patients ages 45 to 49 years was estimated by sub-group analysis of near-age groups. Colonoscopies performed for a positive result may find as the most clinically significant lesion: colorectal cancer [4.0%], advanced adenoma (including sessile serrated polyps greater than or equal to 1cm diameter) [20%] or non- advanced adenoma [31%]; or no colorectal neoplasia [45%]. These estimates are derived from a prospective cross-sectional screening study of 10,000 individuals at average risk for colorectal cancer who were screened with both Cologuard and colonoscopy. (Willian Scott al, N Engl J Med 2014;370(14):5348-8402.) Cologuard may produce a false negative or false positive result (no colorectal cancer or precancerous polyp present at colonoscopy follow up). A negative Cologuard test result does not guarantee the absence of CRC or advanced adenoma (pre-cancer). The current Cologuard screening interval is every 3 years. ([place] [employer] Society and U.S. Multi-Society Task Force). Cologuard performance data in a 10,000 patient pivotal study using colonoscopy as the reference method can be accessed at the following location: www.[employer]ino.[employer]results. Additional description of the Cologuard test process, warnings and precautions can be found at www.[employer] Stool STOOL SPECIMEN / Unknown 10/16/2024 1:15 AM METHODOLOGIST 10/17/2024 7:11 PM METHODOLOGIST Sierra Tran SEO COORDINATOR BODY FLUIDS AND STOOLS Final Result [facility] # [id number] [address] , [address] [place] [address] * MAMMO SCREEN BILAT W OR WO CAD (08/01/2012 9:46 AM METHODOLOGIST) Anatomical Region Laterality Modality Breast Bilateral Other Narrative 08/02/2012 2:01 PM METHODOLOGIST Bilateral Mammogram Reason for Exam: Screening Comparison: Comparison is made with prior exam(s). Findings: Bilateral CC and MLO views were obtained. This examination was reviewed with the aid of a computer-aided detection system(CAD). The breast tissue density is fatty. No significant new findings since the prior mammogram(s). Procedure Note Jose Brock MD - 10/30/2022 Bilateral Mammogram Reason for Exam: Screening Comparison: Comparison is made with prior exam(s). Findings: Bilateral CC and MLO views were obtained. This examination was reviewed with the aid of a computer-aided detection system(CAD). The breast tissue density is fatty. No significant new findings since the prior mammogram(s). Noram Retana DO MAMMO ORDERABLES Final Resu lt from Last 3 Months or Most Recently Relevant to Health Maintenance Additional Health Concerns Infection Onset Date Last Indicated MRSA Comment:Lt leg wound 04/27/17 04/27/2017 04/30/2017 Insurance MEDICARE PART A AND B BCBS SUPP [employer] Medicare Part D Care Teams Design Sales Consultant Relationship Specialty Start Date End Date Naga Sandhu MD [address] [place] [phone] PCP - General Family Practice 09/28/23
--- OUTSIDE RECORDS SUMMARY | 2025-08-08 17:18 | XMS_ITS | Encounter Summary ---
Author Organization [facility] Address [address] [place] [address] Care Team Providers Care Project Estimator Name Role Phone Norma Retana DO Primary Care Provider [phone] Reason for Referral * Outpatient Services (Routine) - Closed Specialty Diagnoses / Procedures Referred By Contbradley t Referred To Contact Diagnoses Other screening mammogram Procedures MAMMO DIGITAL SCREEN BILAT Norma Retana DO [address] [place] [address] Phone: tel: fax: [facility] Pre-Registration [place] CALL TO MAKE APPOINTMENT ONLY [address] [place] [address] Phone: tel: fax: Referral ID Status Reason Start Date Expiration Date Visits Re quested Visits Authorized [id number] Closed 06/20/2012 06/20/2013 1 1 Encounter Details Date Type Department Care Team (Latest Contact Info) Description 06/20/2012 Ancillary Orders [facility] Pre-Registration [place] CALL TO MAKE APPOINTMENT ONLY [address] [place] [address] Norma Retana DO [address] [place] [address] Other screening mammogram Social History Tobacco Use Types Packs/Day Years Used Date Smoking Tobacco: Every Day Cigarettes 0.3 20 Alcohol Use Standard Drinks/Week Comments No 0 (1 standard drink = 0.6 oz pur e alcohol) Comments No Sex and Gender Information Value Date Recorded Sex Assigned at Not on file Legal Sex Female 6:02 AM DOLLY OPERATOR Gender Identity Not on file Sexual Orientation Not on file Occupation Industry Job Start Date Job End Date Not on file Not on file Not on file Not on file documented as of this encounter Plan of Treatment Not on file documented as of this encounter Results * MAMMO DIGITAL SCREEN BILAT (08/01/2012 9:46 AM DOLLY OPERATOR) Anatomical Region Laterality Modality Breast Bilateral Mammography Narrative 08/02/2012 2:03 PM DOLLY OPERATOR Bilateral Mammogram Reason for Exam: Screening Comparison: Comparison is made with prior exam(s). Findings: Bilateral CC and MLO views were obtained. This examination was reviewed with the aid of a computer-aided detection system(CAD). The breast tissue density is fatty. No significant new findings since the prior mammogram(s). Procedure Note Jose Brock MD - 08/02/2012 Bilateral Mammogram Reason for Exam: Screening Comparison: Comparison is made with prior exam(s). Findings: Bilateral CC and MLO views were obtained. This examination was reviewed with the aid of a computer-aided detectionsystem(CAD). The breast tissue density is fatty. No significant new findings since the prior mammogram(s). Norma Retana DO MAMMO ORDERABLES Final Resu lt documented in this encounter Visit Diagnoses Diagnosis Other screening mammogram Other screening mammogram documented in this encounter Additional Health Concerns Infection Onset Date Last Indicated Resolved Time MRSA Comment:Lt leg wound 04/27/17 04/27/2017 04/27/2017 documented as of this encounter Care Teams Project Estimator Relationship Specialty Start Date End Date Norma Retana DO [address] [place] [address] PCP - General Family Practice 03/24/10 documented as of this encounter
--- OUTSIDE RECORDS SUMMARY | 2025-08-08 17:18 | XMS_ITS | Encounter Summary ---
Author Organization [facility] Address [address] [place] [address] Care Team Providers Care Pick Up And Delivery Driver Name Role Phone MazinNorma Katrin SOLIS Primary Care Provider Encounter Details Date Type Department Care Team (Late st Contact Info) Description 12/28/2008 Ancillary Orders [facility] [address] [place] [address] Balaji Madrid DO [address], [place] [phone] Screening Mammogram Social History Tobacco Use Types Packs/Day Years Used Date Smoking Tobacco: Never Assessed Comments Unknown Sex and Gender Information Value Date Recorded Sex Assigned at Not on file Legal Sex Female 6:02 AM DISPLAY DESIGNER OUTSIDE Gender Identity Not on file Sexual Orientation Not on file documented as of this encounter Plan of Treatment Not on file documented as of this encounter Results * MAMMO SCREENING BILAT (04/10/2009 12:55 PM CDT) Anatomical Region Laterality Modality Breast Bilateral Mammography Narrative 04/11/2009 4:33 PM CDT Bilateral Mammogram Reason for Exam: Screening Comparison: Comparison is made with the prior exam(s) dated 2.10.04 Findings: Bilateral CC and MLO views were obtained. This examination was reviewed with the aid of a computer-aided detection system(CAD). The breast tissue density is average. No significant new findings since the prior mammogram(s). Procedure Note Annabelle Salas MD - 04/11/2009 Bilateral Mammogram Reason for Exam: Screening Comparison: Comparison is made with the prior exam(s) dated 10.01.04 Findings: Bilateral CC and MLO views were obtained. This examination was reviewed with the aid of a computer-aided detectionsystem(CAD). The breast tissue density is average. No significant new findings since the prior mammogram(s). Balaji Madrid DO MAMMO ORDERABLES Final R esult documented in this encounter Visit Diagnoses Diagnosis Screening mammogram Other screening mammogram Screening mammogram Other screening mammogram documented in this encounter Additional Health Concerns Infection Onset Date Last Indicated Resolved Time MRSA Comment:Lt leg wound 04/27/17 04/27/2017 04/27/2017 documented as of this encounter Care Teams Pick Up And Delivery Driver Relationship Specialty Start Date End Date Norma Retana DO [address] [place] [address] PCP - General Family Practice 03/24/10 documented as of this encounter
--- OUTSIDE RECORDS SUMMARY | 2025-08-08 17:18 | XMS_ITS | Clinical Summary ---
Author Organization [facility] Address [address] [place] [address] Phone Care Team Providers Care Lokie Engineer Name Role Phone MazinNorma Katrin SOLIS Primary Care Provider [phone] Allergies No known active allergies Medications HYDROCHLOROTHIAZI DE 25 mg tabletIndications :Lower leg edema TAKE 1 TABLET BY MOUTH DAILY 90 Tablet 4 0 Active albuterol HFA 90 mcg inhalerIndication s:Mild intermittent asthma, unspecified whether complicated Take 2 Puffs by inhalation every 6 hours as needed for Shortness of Breath. 8.5 Gram 5 1 Active lidocaine/hydroco rtisone ac (lidocaine HCl-hydrocortison ac) 3 %-2.5 % (7 gram) GelIndications:Ex ternal hemorrhoid Insert 1 Applicator by rectum 2 times daily as needed for Other (See Comment). 1 Each 5 1 Active triamcinolone acetonide (KENALOG) 0.5 % OintmentIndicatio ns:Irritant contact dermatitis due to other chemical products,Urticari a,Contact dermatitis, unspecified contact dermatitis type, unspecified trigger Apply to affected area 2 times daily. 30 Gram 1 1 Active diazePAM (Valium) 5 mg tabletIndications :RLS (restless legs syndrome) Take 1 Tablet (5 mg) by mouth nightly as needed for Anxiety. 30 Tablet 5 1 Active mometasone-formot crispin (Dulera) 200-5 mcg/actuation inhalerIndication s:Mild intermittent asthma, unspecified whether complicated INHALE 1 PUFF BY MOUTH TWICE DAILY 13 Gram 5 1 Active levothyroxine 137 mcg tabletIndications :Hypothyroidism due to acquired atrophy of thyroid Take 1 Tablet (137 mcg) by mouth daily in the morning. 30 Tablet 2 1 Active Active Problems Problem Noted Date Diagnosed Date Hypothyroidism 08/11/2016 External hemorrhoid 05/09/2015 Morbid obesity with BMI of 40.0-44.9, adult 04/2015 Lower leg edema 04/16/2014 RLS (restless legs syndrome) 04/16/2014 Asthma 03/25/2010 Immunizations Immunization Administration Dates Next Due (SPIKEVAX) (12 YRS UP PRIMAR Y SERIES) COVID-19 VACCINE - MRNA-1273(PF) 100 MCG/0.5 ML IM SUSP 01/31/2021,12/18/2020 Family History Medical History Relation Name Comments Other Father Diabetes Mother Breast Cancer Neg Hx Relation Name Status Comments Father Mother Alive Social History Tobacco Use Types Packs/Day Years Used Date Smoking Tobacco: Former Cigarettes 0.3 20 0 02/28/1992 - 02/28/2012 Smokeless Tobacco: Never Tobacco Cessation:Counseling Given: Yes Alcohol Use Standard Drinks/Week Comments Yes 0.8 (1 standard drink = 0.6 oz p ure alcohol) Comments No Sex and Gender Information Value Date Recorded Sex Assigned at Not on file Legal Sex Female 6:02 AM SENIOR ART DIRECTOR Gender Identity Not on file Sexual Orientation Not on file Occupation Industry Job Start Date Job End Date Not on file Not on file Not on file Not on file Last Filed Vital Signs Vital Sign Reading Time Taken Comments Blood Pressure 118/64 02/04/2021 9:21 AM CDT Pulse 80 02/04/2021 9:21 AM CDT Temperature 36.6 C (97.9 F) 02/04/2021 9:21 AM CDT Respiratory Rate 18 05/08/2015 4:30 PM CDT Oxygen Saturation 97% 02/04/2021 9:21 AM CDT Inhaled Oxygen Concentration - - Weight 100.2 kg (221 lb) 02/04/2021 9:21 AM CDT Height 152.4 cm (5') 02/04/2021 9:21 AM CDT Body Mass Index 43.16 02/04/2021 9:21 AM CDT Plan of Treatment Health Maintenance Due Date Last Done Comments Pre-Diabetes and Diabetes Screening 1956 DTAP/TDAP/TD VACCINES (1 - Tdap) 1975 PNEUMOCOCCAL VACCINE 50+ YEA RS (1 of 2 - PCV) 1975 COLORECTAL SCREENING 2001 Colorectal Cancer Screening 2001 FIT-DNA Q 3 years 2001 FIT/FOBT Q 1 year 2001 Flex Sig/CT Colonography Q 5 years 2001 RSV VACCINE (60+ or ) (1 - Risk 50-74 years 1-dose series) 2006 ZOSTER VACCINE (1 of 2) 2006 BREAST CANCER SCREENING 08/01/2013 08/01/20 12, 2011, 04/23/2010, Additional history exists OSTEOPOROSIS SCREENING 2021 INFLUENZA VACCINE (#1) 2025 COVID-19 Vaccine (3 - 2024-2 6 season) 2025 01/31/2021, 12/18/2020 Procedures Procedure Name Priority Date/Time Associated Diagnosis Comments MAMMO SCREEN BILAT W OR WO CAD Routine 08/01/2012 9:46 AM SENIOR ART DIRECTOR Other screening mammogram from Last 3 Months or Most Recently Relevant to Health Maintenance Results * MAMMO DIGITAL SCREEN BILAT (08/01/2012 9:46 AM SENIOR ART DIRECTOR) Anatomical Region Laterality Modality Breast Bilateral Mammography Narrative 08/02/2012 2:03 PM SENIOR ART DIRECTOR Bilateral Mammogram Reason for Exam: Screening Comparison: [...] significant new findings since the prior mammogram(s). us Norma Retana DO MAMMO ORDERABLES Final Resu lt from Last 3 Months or Most Recently Relevant to Health Maintenance Additional Health Concerns Infection Onset Date Last Indicated MRSA Comment:Lt leg wound 04/27/17 04/27/2017 04/27/2017 Care Teams Lokie Engineer Relationship Specialty Start Date End Date Norma Retana DO [address] [place] [address] PCP - General Family Practice 03/24/10
--- OUTSIDE RECORDS SUMMARY | 2025-08-08 17:18 | XMS_ITS | Encounter Summary ---
Author Organization [facility] Address [address] [place] [address] Care Team Providers Care Recreation Program Specialist Name Role Phone Naga Sandhu MD Primary Care Provider [phone] Encounter Details Date Type Department Care Team (Late st Contact Info) Description 06/14/2025 Results Follow-Up [facility] [place] [address] [address] Pearl Coy FNP [address] [address] TSH, T4 FREE Social History Tobacco Use Types Packs/Day Years Used Date Smoking Tobacco: Former Cigarettes 0.3 Q uit: 02/28/2012 Smokeless Tobacco: Never Alcohol Use Standard Drinks/Week Comments Yes 0.8 [...] on file Legal Sex Female 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 Voiced understanding. Kami LEWIS * Result Encounter Note - Pearl Coy FNP - 06/14/2025 8:12 AM CDT Please let pt know thyroid levels are normal documented in this encounter Plan of Treatment Upcoming Encounters Date Type Department Care Team (Late st Contact Info) Description 12/25/2025 10:20 AM CDT Office Visit [address] [phone] Naga Sandhu MD [address] [place] [phone] documented as of this encounter Visit Diagnoses Not on filedocumented in this encounter Additional Health Concerns Infection Onset Date Last Indicated Resolved Time MRSA Comment:Lt leg wound 04/27/17 04/27/2017 04/30/2017 documented as of this encounter Care Teams Recreation Program Specialist Relationship Specialty Start Date End Date Naga Sandhu MD [address] [place] [phone] PCP - General Family Practice 09/28/23 documented as of this encounter
--- OUTSIDE RECORDS SUMMARY | 2025-08-08 17:19 | XMS_ITS | Encounter Summary ---
Author Organization [facility] Address [address] [place] [address] Care Team Providers Care Rooming House Operator Name Role Phone Norma Retana DO Primary Care Provider Encounter Details Date Type Department Care Team (Latest Contact Info) Description 10/01/2004 Outpatient [facility] Breast Center [facility] [address] [place], [place] [id number] Balaji Madrid DO [address] [place] [address] SCREENING MAMM-MAILG NEOPL-OTHER (Primary Dx) Social History Tobacco Use Types Packs/Day Years Used Date Smoking Tobacco: Never Assessed Comments Unknown Sex and Gender Information Value Date Recorded Sex Assigned at Not on file Legal Sex Female 6:02 AM MANAGER ENGLISH Gender Identity Not on file Sexual Orientation Not on file documented as of this encounter Plan of Treatment Not on file documented as of this encounter Visit Diagnoses Diagnosis Other screening mammogram- Primary documented in this encounter Additional Health Concerns Infection Onset Date Last Indicated Resolved Time MRSA Comment:Lt leg wound 04/27/17 04/27/2017 04/27/2017 documented as of this encounter Care Teams Rooming House Operator Relationship Specialty Start Date End Date Norma Retana DO [address] [place] [phone] PCP - General Family Practice 03/24/10 documented as of this encounter
--- OUTSIDE RECORDS SUMMARY | 2025-08-08 17:19 | XMS_ITS | Encounter Summary ---
Author Organization [facility] Address [address] [place] [address] Care Team Providers Care Traveling Engineer Name Role Phone Norma Retana DO Primary Care Provider Encounter Details Date Type Department Care Team (Late st Contact Info) Description 03/25/2010 Ancillary Orders [facility] [address] [facility] [address] [place] [address] Balaji Madrid DO [address] [place], [place] [address] Other Screening Mammogram Social History Tobacco Use Types Packs/Day Years Used Date Smoking Tobacco: Every Day Cigarettes 0.3 20 Alcohol Use Standard Drinks/Week Comments No 0 (1 standard drink = 0.6 oz pur e alcohol) Comments No Sex and Gender Information Value Date Recorded Sex Assigned at Not on file Legal 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 Female 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
--- OUTSIDE RECORDS SUMMARY | 2025-08-08 17:19 | XMS_ITS | Encounter Summary ---
Author Organization [facility] Address [address] [place] [address] Care Team Providers Care Clock And Watch Assembler Name Role Phone Norma Retana DO Primary Care Provider [phone] Encounter Details Date Type Department Care Team (Late st Contact Info) Description 01/06/2006 Outpatient Historical [facility] [address] [address] Annabelle Salas MD NO ADDRESS ON FILE Other Screening Mammogram (Primary Dx) Social History Tobacco Use Types Packs/Day Years Used Date Smoking Tobacco: Never Assessed Comments Unknown Sex and Gender Information Value Date Recorded Sex Assigned at Not on file Legal 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 Gender Identity Not on file Sexual Orientation Not on file documented as of this encounter Plan of Treatment Not on file documented as of this encounter Visit Diagnoses Diagnosis Other screening mammogram- Primary documented in this encounter Additional Health Concerns Infection Onset Date Last Indicated Resolved Time MRSA Comment:Lt leg wound 04/27/17 04/27/2017 04/27/2017 documented as of this encounter Care Teams Clock And Watch Assembler Relationship Specialty Start Date End Date Norma Retana DO [address] [place] [address] PCP - General Family Practice 03/24/10 documented as of this encounter
--- OUTSIDE RECORDS SUMMARY | 2025-08-08 17:19 | XMS_ITS | Encounter Summary ---
Author Organization [facility] Address [address] [place] [address] Care Team Providers Care Bottom Stop Attacher Name Role Phone Norma Retana DO Primary Care Provider Encounter Details Date Type Department Care Team (Late st Contact Info) Description 03/21/2001 Outpatient Historical [facility] [address] [address] Annabelle Salas MD NO ADDRESS ON FILE Other screening mammogram (Primary Dx) Social History Tobacco Use Types Packs/Day Years Used Date Smoking Tobacco: Never Assessed Comments Unknown Sex and Gender Information Value Date Recorded Sex Assigned at Not on file Legal Sex Female 6: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 Gender Identity Not on file Sexual Orientation Not on file documented as of this encounter Plan of Treatment Not on file documented as of this encounter Visit Diagnoses Diagnosis Other screening mammogram- Primary documented in this encounter Additional Health Concerns Infection Onset Date Last Indicated Resolved Time MRSA Comment:Lt leg wound 04/27/17 04/27/2017 04/27/2017 documented as of this encounter Care Teams Bottom Stop Attacher Relationship Specialty Start Date End Date Norma Retana DO [address] [place] [address] PCP - General Family Practice 03/24/10 documented as of this encounter
--- OUTSIDE RECORDS SUMMARY | 2025-08-08 17:19 | XMS_ITS | Encounter Summary ---
Author Organization [facility] Address [address] [place] [address] Care Team Providers Care Hoop Puncher Name Role Phone MazinNorma brown Primary Care Provider [phone] Encounter Details Date Type Department Care Team (Latest Contact Info) Description 10/29/2004 Outpatient Historical [facility] [address] [place] [address] Balaji Madrid DO [address] [place], [place] [phone] VAGINITIS NOS (Primary Dx) Social History Tobacco Use Types Packs/Day Years Used Date Smoking Tobacco: Never Assessed Comments Unknown Sex and Gender Information Value Date Recorded Sex Assigned at Not on file Legal Sex Female 6:02 AM LAUNDRY 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 Gender Identity Not on file Sexual Orientation Not on file documented as of this encounter Plan of Treatment Not on file documented as of this encounter Procedures Procedure Name Priority Date/Time Associated Diagnosis Comments CBC WITH DIFFERENTIAL Routine 10/29/2004 6:46 PM LAUNDRY TECHNICIAN URINALYSIS W/REFLEX MICROSCOPIC Routine 10/29/2004 6:46 PM LAUNDRY TECHNICIAN documented in this encounter Results * URINALYSIS (10/29/2004 6:46 PM LAUNDRY TECHNICIAN) COLOR UA Yellow Straw INTERFACE SYSTEM CLARITY UA Clear Clear INTERFACE SYSTEM LEUKOCYTE ESTERASE UA NEGATIVE NEGATIVE INTERFACE SYSTEM NITRITE UA NEGATIVE NEGATIVE INTERFACE SYSTEM PH UA 5.5 5.0 - 9.0 INTERFACE SYSTEM PROTEIN UA NEGATIVE NEGATIVE INTERFACE SYSTEM GLUCOSE UA NEGATIVE NEGATIVE INTERFACE SYSTEM KETONES UA NEGATIVE NEGATIVE INTERFACE SYSTEM UROBILINOGEN UA 0.2 INTE RFACE SYSTEM BILIRUBIN UA NEGATIVE NEGATIVE INTERFA CE SYSTEM BLOOD UA NEGATIVE NEGATIVE INTERFACE SYSTEM SPECIFIC GRAVITY UA 1.020 1.005 - 1.030 INTERFACE SYSTEM MICRO EXAM No No INTERFACE SYSTEM 10/29/2004 6:46 PM LAUNDRY TECHNICIAN Balaji Madrid DO URINE ORDERABLES Final R esult INTERFACE SYSTEM Refer to clinic/hospital department * (ABNORMAL) CBC WITH DIFFERENTIAL (10/29/2004 6:46 PM LAUNDRY TECHNICIAN) WBC 8.1 4.5 - 11.0 K/ul INTERFACE SYSTEM RBC 5.10 4.20 - 5.40 Mil/ul INTERFACE SYSTEM HEMOGLOBIN 15.3 12.0 - 16.0 g/dL INTERFACE SYSTEM HEMATOCRIT 45.8 36.0 - 46.0 % INTERFACE SYSTEM MCV 89.8 84.0 - 103.0 Fl INTERFACE SYSTEM MCH 30.0 27.0 - 34.0 pg INTERFACE SYSTEM MCHC 33.4 30.0 - 35.0 g/dL INTERFACE SYSTEM RDW 15.4(H) 11.0 - 14.5 percent(in active) INTERFACE SYSTEM PLATELETS 244 140 - 440 K/ul INTERFACE SYSTEM MPV 11.1 8.9 - 12.8 Fl INTERFACE SYSTEM NEUTROPHILS 63.2 42.2 - 75.2 percent(in active) INTERFACE SYSTEM LYMPHOCYTES 25.4 24.0 - 44.0 percent(in active) INTERFACE SYSTEM MONOCYTES 5.7 2.0 - 10.0 percent(in active) INTERFACE SYSTEM EOSINOPHILS 4.6 0.0 - 7.0 % INTERFACE SYSTEM BASOPHILS 1.1(H) 0.0 - 1.0 percent(in active) INTERFACE SYSTEM NEUTROPHIL ABSOLUTE 5.1 2.0 - 8.0 K/uL INTERFACE SYSTEM LYMPHOCYTE ABSOLUTE 2.1 1.2 - 4.0 K/ul INTERFACE SYSTEM MONOCYTE ABSOLUTE 0.5 0.1 - 0.6 K/ul INTERFACE SYSTEM EOSINOPHIL ABSOLUTE 0.4 0.0 - 0.7 K/ul INTERFACE SYSTEM BASOPHILS ABSOLUTE 0.1 0.0 - 0.2 K/ul INTERFACE SYSTEM 10/29/2004 6:46 PM LAUNDRY TECHNICIAN us Balaji Madrid DO HEMATOLOGY ORDERABLES Fi nal Result INTERFACE SYSTEM Refer to clinic/hospital department documented in this encounter Visit Diagnoses Diagnosis Vaginitis and vulvovaginitis, unspecified- Primary documented in this encounter Additional Health Concerns Infection Onset Date Last Indicated Resolved Time MRSA Comment:Lt leg wound 04/27/17 04/27/2017 04/27/2017 documented as of this encounter Care Teams Hoop Puncher Relationship Specialty Start Date End Date Norma Retana DO [address] [place] [address] PCP - General Family Practice 03/24/10 documented as of this encounter
--- OUTSIDE RECORDS SUMMARY | 2025-08-08 17:19 | XMS_ITS | Encounter Summary ---
Author Organization [facility] Address [address] [place] [address] Care Team Providers Care Salsa Dance Instructor Name Role Phone Norma Retana DO Primary Care Provider Encounter Details Date Type Department Care Team (Latest Contact Info) Description 01/06/2006 Outpatient [facility] Breast Center [facility] [address] [place], [place] [address] Balaji Madrid DO [address] [place] [address] Other Screening Mammogram (Primary Dx) Social History Tobacco Use Types Packs/Day Years Used Date Smoking Tobacco: Never Assessed Comments Unknown Sex and Gender Information Value Date Recorded Sex Assigned at Not on file 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 Gender Identity Not on file Sexual Orientation Not on file documented as of this encounter Plan of Treatment Not on file documented as of this encounter Visit Diagnoses Diagnosis Other screening mammogram- Primary documented in this encounter Additional Health Concerns Infection Onset Date Last Indicated Resolved Time MRSA Comment:Lt leg wound 04/27/17 04/27/2017 04/27/2017 documented as of this encounter Care Teams Salsa Dance Instructor Relationship Specialty Start Date End Date Norma Retana DO [address] [place] [address] PCP - General Family Practice 03/24/10 documented as of this encounter
--- OUTSIDE RECORDS SUMMARY | 2025-08-08 17:19 | XMS_ITS | Encounter Summary ---
Author Organization [facility] Address [address] [place] [address] Care Team Providers Care Dogger Name Role Phone Norma Retana DO Primary Care Provider [phone] Reason for Referral * Outpatient Services (Routine) - Closed Specialty Diagnoses / Procedures Referred By Sahara t Referred To Contact Diagnoses Other screening mammogram Procedures MAMMO DIGITAL SCREEN BILAT Norma Retana DO [address] [place] [address] Phone: tel: fax: Referral ID Status Reason Start Date Expiration Date Visits Re quested Visits Authorized [id number] Closed 04/23/2010 10/20/2010 1 1 Encounter Details Date Type Department Care Team (Late st Contact Info) Description 04/23/[address] 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 This examination was reviewed with the aid of a computer-aided detection system(CAD). The breast tissue density is average. Asymmetric breast tissue is noted. No significant new findings since the prior mammogram(s). Procedure Note Annabelle Salas MD - 04/25/2010 Bilateral Mammogram Reason for Exam: Screening Comparison: Comparison is made with the prior exam(s) dated 01.06.06,04.10.09 Findings: Bilateral CC and MLO views were obtained. This examination was reviewed with the aid of a computer-aided detectionsystem(CAD). The breast tissue density is average. Asymmetric breast tissue is noted. No significant new findings since the prior mammogram(s). Norma Retana DO MAMMO ORDERABLES Final Resu lt documented in this encounter Visit Diagnoses Diagnosis Other screening mammogram Other screening mammogram documented in this encounter Additional Health Concerns Infection Onset Date Last Indicated Resolved Time MRSA Comment:Lt leg wound 04/27/17 04/27/2017 04/27/2017 documented as of this encounter Care Teams Dogger Relationship Specialty Start Date End Date Norma Retana DO [address] [place] [address] PCP - General Family Practice 03/24/10 documented as of this encounter
--- OUTSIDE RECORDS SUMMARY | 2025-08-08 17:19 | XMS_ITS | Encounter Summary ---
Author Organization [facility] Address [address] [place] [address] Care Team Providers Care Waterworks Employee Name Role Phone Norma Retana DO Primary Care Provider [phone] Encounter Details Date Type Department Care Team (Latest Contact Info) Description 01/19/2007 Outpatient Historical [facility] [address] [facility] [address] [place] [phone] Hubert Brock MD NO ADDRESS ON FILE Other Screening Mammogram (Primary Dx) Social History Tobacco Use Types Packs/Day Years Used Date Smoking Tobacco: Never Assessed Comments Unknown Sex and Gender Information Value Date Recorded Sex Assigned at Not on file Legal Sex Female 6:02 AM 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 HELPER Gender Identity Not on file Sexual Orientation Not on file documented as of this encounter Plan of Treatment Not on file documented as of this encounter Visit Diagnoses Diagnosis Other screening mammogram- Primary documented in this encounter Additional Health Concerns Infection Onset Date Last Indicated Resolved Time MRSA Comment:Lt leg wound 04/27/17 04/27/2017 04/27/2017 documented as of this encounter Care Teams Waterworks Employee Relationship Specialty Start Date End Date Norma Retana DO [address] [place] [address] PCP - General Family Practice 03/24/10 documented as of this encounter
--- OUTSIDE RECORDS SUMMARY | 2025-08-08 17:19 | XMS_ITS | Encounter Summary ---
Author Organization [facility] Address [address] [place] [address] Care Team Providers Care Spinning Bath Patroller Name Role Phone Norma Retana DO Primary Care Provider Encounter Details Date Type Department Care Team (Late st Contact Info) Description 01/11/[address] 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
--- OUTSIDE RECORDS SUMMARY | 2025-08-08 17:19 | XMS_ITS | Encounter Summary ---
Author Organization [facility] Address [address] [place] [address] Care Team Providers Care Poultry Farmer Egg Name Role Phone Norma Retana DO Primary Care Provider Encounter Details Date Type Department Care Team (Latest Contact Info) Description 10/31/2004 Outpatient Historical [facility] [address] [place] [phone] Balaji Madrid DO [address] [place] [address] POLYP OF LABIA AND VULVA (Primary Dx) Social History Tobacco Use Types Packs/Day Years Used Date Smoking Tobacco: Never Assessed Comments Unknown Sex and Gender Information Value Date Recorded Sex Assigned at Not on file Legal Sex Female 6: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 Gender Identity Not on file Sexual Orientation Not on file documented as of this encounter Plan of Treatment Not on file documented as of this encounter Visit Diagnoses Diagnosis Polyp of labia and vulva- Primary documented in this encounter Additional Health Concerns Infection Onset Date Last Indicated Resolved Time MRSA Comment:Lt leg wound 04/27/17 04/27/2017 04/27/2017 documented as of this encounter Care Teams Poultry Farmer Egg Relationship Specialty Start Date End Date Norma Retana DO [address] [place] [address] PCP - General Family Practice 03/24/10 documented as of this encounter
--- OUTSIDE RECORDS SUMMARY | 2025-08-08 17:19 | XMS_ITS | Encounter Summary ---
Author Organization [facility] Address [address] [place] [address] Care Team Providers Care Environmental Protection Specialist Name Role Phone Norma Retana DO Primary Care Provider [phone] Encounter Details Date Type Department Care Team (Late st Contact Info) Description 10/01/2004 Outpatient Historical [facility] [address] [phone] Annabelle Salas MD NO ADDRESS ON FILE SCREENING MAMM-MAILG NEOPL-OTHER (Primary Dx) Social History Tobacco Use Types Packs/Day Years Used Date Smoking Tobacco: Never Assessed Comments Unknown Sex and Gender Information Value Date Recorded Sex Assigned at Not on file Legal Sex Female 6:02 AM WAITER/WAITRESS [employer]Y CLASS Gender Identity Not on file Sexual Orientation Not on file documented as of this encounter Plan of Treatment Not on file documented as of this encounter Visit Diagnoses Diagnosis Other screening mammogram- Primary documented in this encounter Additional Health Concerns Infection Onset Date Last Indicated Resolved Time MRSA Comment:Lt leg wound 04/27/17 04/27/2017 04/27/2017 documented as of this encounter Care Teams Environmental Protection Specialist Relationship Specialty Start Date End Date Norma Retana DO [address] [place] [address] PCP - General Family Practice 03/24/10 documented as of this encounter
--- OUTSIDE RECORDS SUMMARY | 2025-08-08 17:19 | XMS_ITS | Encounter Summary ---
Author Organization [facility] Address [address] [place] [address] Care Team Providers Care Herpetologist Name Role Phone Norma Retana DO Primary Care Provider Encounter Details Date Type Department Care Team (Latest Contact Info) Description 01/19/2007 Outpatient [facility] [address], [place] [id number] Balaji Madrid DO [address] [place] [address] Other Screening Mammogram (Primary Dx) Social History Tobacco Use Types Packs/Day Years Used Date Smoking Tobacco: Never Assessed Comments Unknown Sex and Gender Information Value Date Recorded Sex Assigned at Not on file Legal Sex Female 6:[address] VENDING ROUTE SERVICER Gender Identity Not on file Sexual Orientation Not on file documented as of this encounter Plan of Treatment Not on file documented as of this encounter Visit Diagnoses Diagnosis Other screening mammogram- Primary documented in this encounter Additional Health Concerns Infection Onset Date Last Indicated Resolved Time MRSA Comment:Lt leg wound 04/27/17 04/27/2017 04/27/2017 documented as of this encounter Care Teams Herpetologist Relationship Specialty Start Date End Date Norma Retana DO [address] [place] [address] PCP - General Family Practice 03/24/10 documented as of this encounter
--- OUTSIDE RECORDS SUMMARY | 2025-08-08 17:19 | XMS_ITS | Encounter Summary ---
Author Organization [facility] Address [address] [place] [address] Care Team Providers Care Log Yard Derrick Operator Name Role Phone Norma Retana DO Primary Care Provider [phone]- [phone] Reason for Referral * Outpatient Services (Routine) - Closed Specialty Diagnoses / Procedures Referred By Sahara vargas Referred To Contact Diagnoses Other screening mammogram Procedures MAMMO DIGITAL SCREEN BILAT Norma Retana DO [address] [place] [address] Phone: tel: fax: Referral ID Status Reason Start Date Expiration Date Visits Re quested Visits Authorized [id number] Closed 06/15/2011 06/14/2012 1 1 Encounter Details Date Type Department Care Team (Latest Contact Info) Description 06/15/2011 Ancillary Orders [facility] Pre-Registration [place] CALL TO MAKE APPOINTMENT ONLY [address] [place] [address] Norma Retana DO [address] [place] [address] Other screening mammogram Social History Tobacco Use Types Packs/Day Years Used Date Smoking Tobacco: Every Day Cigarettes 0.3 20 Alcohol Use Standard Drinks/Week Comments No 0 (1 standard drink = 0.6 oz pur e alcohol) Comments No Sex and Gender Information Value Date Recorded Sex Assigned at Not on file Legal Sex Female 6:02 AM ARBITRATOR Gender Identity Not on file Sexual Orientation Not on file documented as of this encounter Plan of Treatment Not on file documented as of this encounter Results * MAMMO DIGITAL SCREEN BILAT (2011 3:20 PM ARBITRATOR) Anatomical Region Laterality Modality Breast Bilateral Mammography Narrative 07/16/2011 4:04 PM ARBITRATOR Bilateral Mammogram Reason for Exam: Screening Comparison: Comparison is made with the prior exam(s) dated 04.23.10, 04.10.09, 01.06.06 Findings: Bilateral CC and MLO views were obtained. This examination was reviewed with the aid of a computer-aided detection system(CAD). The breast tissue density is fatty. Asymmetric breast tissue is noted. No significant new findings since the prior mammogram(s). Procedure Note Annabelle Salas MD - 07/16/2011 Bilateral Mammogram Reason for Exam: Screening Comparison: Comparison is made with the prior exam(s) dated 04.23.10,04.10.09, 01.06.06 Findings: Bilateral CC and MLO views were obtained. This examination was reviewed with the aid of a computer-aided detectionsystem(CAD). The breast tissue density is fatty. Asymmetric breast tissue is noted. No significant new findings since the prior mammogram(s). Norma Retana DO MAMMO ORDERABLES Final Resu lt documented in this encounter Visit Diagnoses Diagnosis Other screening mammogram Other screening mammogram documented in this encounter Additional Health Concerns Infection Onset Date Last Indicated Resolved Time MRSA Comment:Lt leg wound 04/27/17 04/27/2017 04/27/2017 documented as of this encounter Care Teams Log Yard Derrick Operator Relationship Specialty Start Date End Date Norma Retana DO [address] [place] [address] PCP - General Family Practice 03/24/10 documented as of this encounter
[2025-08-08 17:40] LABS: Partial Thromboplastin Time 174.2 SECONDS (23.9-36.7)
[2025-08-08] MEDS: ondansetron 2 mg/ML SDV 2 mL 4 MG IVP (18:11)
--- NOTE | 2025-08-08 18:17 | PC.NURSE ---
Patient arrived to ICU at approximately 1440. Dr. Basil rebolledo, received orders for bipap and terrazas catheter, orders placed. Continue aggrastat until bag is finished, check PTTs, when PTT is lower than 45 remove sheath.
--- NOTE | 2025-08-08 18:39 | PC.NURSE ---
Dr. Gracia rounding again on patient received orders for midnight lasix and potassium, see MAR, received orders for labs at 0400. see chart
--- NOTE | 2025-08-08 20:06 | ECG_ITS ---
[facility] Test Date: 2025-08-08 Pat Name: Yaritza Hernandez Department: Room: ICU01 Gender: Female Commercial Loan Underwriter: : 1955 Requested By: Cruz Gracia Order Number: [id number] Sammy MD: Hebert Alejandra M.D. Measurements Intervals [place] Rate: 56 P: 0 NH: 0 QRS: 183 QRSD: 68 T: 120 QT: 380 QTc: 370 Interpretive Statements Multifocal atrial rhythm WITH SLOW VENTRICULAR RESPONSE WITH ABERRANT CONDUCTION OR VENTRICULAR PREMATURE COMPLEXES ANTEROLATERAL MYOCARDIAL INFARCTION , PROBABLY RECENT [40+ ms Q WAVE IN I/aVL/V3-V6] ACUTE [place] Compared to ECG 08/08/2025 14:59:36 Ventricular premature complex(es) now present Aberrant conduction of supraventricular beat(s) now present Sinus rhythm no longer present Left anterior fascicular block no longer present Myocardial infarct finding still present Electronically Signed On 08-09-2025 17:43:13 BURIAL AGENT by Hebert Alejandra M.D. [email or web address] [id number]
--- NOTE | 2025-08-08 22:31 | ECG_ITS ---
[facility] Test Date: 2025-08-08 Pat Name: Yaritza Hernandez Department: Room: ICU01 Gender: Female Glost Kiln Placer: : 1955 Requested By: Cruz Gracia Order Number: [id number] Sammy MD: Hebert Alejandra M.D. Measurements Intervals [place] Rate: 52 P: 38 MD: 157 QRS: 155 QRSD: 82 T: 116 QT: 403 QTc: 377 Interpretive Statements SINUS BRADYCARDIA POSSIBLE RIGHT VENTRICULAR HYPERTROPHY [SOME/ALL OF: PROMINENT R IN V1, LATE TRANSITION, RAD, RAYMOND, SSS] ANTEROLATERAL MYOCARDIAL INFARCTION , PROBABLY RECENT [40+ ms Q WAVE IN I/aVL/V3-V6] ACUTE [place] Compared to ECG 08/08/2025 20:06:11 Atrial fibrillation no longer present Ventricular premature complex(es) no longer present Aberrant conduction of supraventricular beat(s) no longer present Myocardial infarct finding still present Electronically Signed On 08-09-2025 17:41:07 SUPERVISOR PROP MAKING by Hebert Alejandra M.D. [id number]
[2025-08-08] MEDS: HYDROcodone-acetaminophen 5-325 mg Tablet 1 TAB PO (22:42)
--- NOTE | 2025-08-08 23:07 | PC.NURSE ---
TR bands Two TR bands on patient's right wrist at 1900. 2-3 ml air intermittently released from proximal TR band first and band removed at around 2100. 2-3 ml air intermittently released from remaining TR band and removed completely at 2308. Clear dressing applied to puncture, no hematoma noted.
[2025-08-08 23:11] LABS: Troponin 5 6HR > 10000 ng/L (0-10)
--- NOTE | 2025-08-08 23:40 | PC.NURSE ---
Physician Communication Patient's HR staying in the low 50s, intermittently decreasing into the 40s. Patient states she does have some chest tightness at a 3 on a 1-10 numerical scale, patient also states that this is not new and that it has been present since this afternoon. No sweating, nausea, hypotension noted. 6 hour troponin resulted at >[address]. Dr. Gracia notified of HR, troponin, and chest tightness. No orders received. Furthermore, Lasix order active for 0000 as well as 0245. Oder received from Dr. Gracia to administer the 0000 dose but not the dose for 0245.
--- NOTE | 2025-08-08 23:47 | PC.NURSE ---
Addendum entered by Chanel Shepard RN 08/08/25 23:53: Lab reported Criticals to Chanel Zaragoza at 2309 on 08/08/25 Original Note: Received call from lab of Critical 6 hour Troponin greater than 10,000. Also Critical 6 hour Delta Troponin of 6,660. Lab said they were unable to reach nurse in ICU to report Critical. I personally reported critical troponins to Brina Brambila RN charge in ICU at approximately 2314.
[2025-08-09] VITALS (106 sets, daily range): BP systolic 78–164; BP diastolic 46–106; PULSE 51–146; RESP 14–34; TEMP 36.4–37.1; O2SAT 87–98; BMI 42.0
[2025-08-09 00:20] LABS: Partial Thromboplastin Time 25.8 SECONDS (23.9-36.7)
--- NOTE | 2025-08-09 00:41 | PC.NURSE ---
Magnesium Patient noted to have multiple, intermittent runs of vtach lasting approximately 6 beats each with pvcs also noted when in sinus bradycardic rhythm. Patient denies worsening chest pain, nausea, or shortness of breath. Sheath still in place due to difficulty in obtaining ptt and pending result. Dr. Gracia notified of irregular rhythms as well as sheath in place. Order received for 1 gm magnesium IV once and verification received to pull sheath.
[2025-08-09] MEDS: potassium chloride oral liq 20 mEq/15 mL UDC 40 MEQ PO (00:50)
[2025-08-09] MEDS: magnesium sulfate premix 1 GM/100 ML PIGGYBACK IV (00:51)
[2025-08-09] MEDS: FUROsemide 10 mg/mL SDV 4mL 40 MG IVP (00:51)
[2025-08-09] MEDS: fentaNYL 50 mcg/mL INJ 2mL IVP (01:35)
--- NOTE | 2025-08-09 03:40 | PC.NURSE ---
Sheath/Hematoma Sheath pulled at 0148 and 20 minutes of pressure held. Small hematoma noted on groin; 15 minutes of pressure additionally held to express hematoma. Hematoma still present measuring 6 cm. No back pain reported, all vital signs stable. Dr. Gracia notified of hematoma formation and size.
[2025-08-09] MEDS: ondansetron 2 mg/ML SDV 2 mL 4 MG IVP ×2 (04:15→09:14)
[2025-08-09] MEDS: morphine 4 mg/mL SDV 1 mL IVP (04:22)
[2025-08-09 05:58] LABS: Hematocrit 48.0 % (36-47); Hemoglobin 14.80 g/dL (11.27-16.99); Mean Corpuscular HGB Conc 30.8 g/dL (30-55); Mean Corpuscular Hemoglobin 27.6 pg (27-33); Mean Corpuscular Volume 89.4 fl (85-98); Nucleated Red Blood Cells % 0 %; Platelet Count 277 10^3/cmm (157-399); Red Blood Count 5.37 10^6/uL (3.85-5.65); White Blood Count 16.42 10^3/uL (3.29-11.43)
[2025-08-09 06:53] LABS: Alanine Aminotransferase 111 U/L (0-33); Albumin Level 3.8 g/dL (3.5-5.2); Alkaline Phosphatase 104 U/L (35-105); Aspartate Amino Transferase 506 U/L (0-32); Blood Urea Nitrogen 23 mg/dL (8-23); Calcium 9.0 mg/dL (8.5-10.5); Carbon Dioxide 22 mmol/L (22-29); Chloride 100 mmol/L (98-107); Globulin 3.4 g/dL (1.3-4.6); Glucose 155 mg/dL (65-115); Magnesium 2.9 mg/dL (1.7-2.3); Osmolality Calculated 291 mOsm/kg (285-295); Sodium 137 mmol/L (136-145); Total Protein 7.2 g/dL (6.6-8.7)
[2025-08-09 07:00] LABS: Anion Gap 21.6 (5-19)
[2025-08-09 07:01] LABS: Potassium 6.6 mmol/L (3.5-5.1)
--- NOTE | 2025-08-09 08:41 | PC.NURSE ---
Contacted lab for stat potassium lab [facility], lab staff says they will send Nirmala to [facility].
[2025-08-09 09:15] LABS: Potassium 6.1 mmol/L (3.5-5.1)
[2025-08-09 09:17] LABS: Cholesterol 202 mg/dL (0-200); HDL Cholesterol 42 mg/dL (60-100); Triglycerides 153 mg/dL (0-150)
[2025-08-09 09:25] LABS: Estmated Average Glucose 148; Hemoglobin A1C 6.8 % (4.0-6.0)
--- NOTE | 2025-08-09 10:49 | ECG_ITS ---
[employer] [facility] Test Date: 2025-08-09 Pat Name: Yaritza Hernandez Department: Room: ICU01 Gender: Female Double Needle Stitcher: : 1955 Requested By: Cruz Gracia Order Number: [id number] Sammy MD: Hebert Alejandra M.D. Measurements Intervals [place] Rate: 72 P: 84 OR: 157 QRS: 162 QRSD: 80 T: 111 QT: 360 QTc: 394 Interpretive Statements SINUS RHYTHM POSSIBLE RIGHT VENTRICULAR HYPERTROPHY [SOME/ALL OF: PROMINENT R IN V1, LATE TRANSITION, RAD, RAYMOND, SSS] ANTEROLATERAL MYOCARDIAL INFARCTION , PROBABLY RECENT [40+ ms Q WAVE IN I/aVL/V3-V6] ACUTE [place] Compared to ECG 08/08/2025 22:31:34 Sinus bradycardia no longer present Myocardial infarct finding still present Electronically Signed On 08-09-2025 17:20:51 TRADE FACILITATOR by Hebert Alejandra M.D. [email or web address] [id number]
[2025-08-09] MEDS: morphine 4 mg/mL SDV 1 mL 2 MG IVP (10:56)
[2025-08-09 12:44] LABS: Anion Gap 16.3 (5-19); Blood Urea Nitrogen 23 mg/dL (8-23); Calcium 9.0 mg/dL (8.5-10.5); Carbon Dioxide 26 mmol/L (22-29); Chloride 100 mmol/L (98-107); Glucose 165 mg/dL (65-115); Osmolality Calculated 291 mOsm/kg (285-295); Potassium 5.3 mmol/L (3.5-5.1); Sodium 137 mmol/L (136-145)
--- NOTE | 2025-08-09 15:20 | P.PN_ITS ---
<Statement entered by Cruz Gracia MD - 08/10/25 15:57> Patient was evaluated and cared for in conjunction with an advanced practice practitioner. I personally examined the patient and reviewed the chart and all pertinent data including imaging, telemetry, and laboratory results. I discussed the patient in detail with the advanced practice practitioner. Please see their note for complete H&P testing result and agreed upon plan of care for the patient. Subjective 2 Subjective: Patient status post stent to the LAD. She is improved since yesterday. Still has some fine crackles present but has put out -2080 over 24 hours. Discussed LifeVest with patient. She denies chest pain at this time. States shortness of breath is improved. Family is at bedside. Vitals/I&O/Wt Last Vital Signs Temp 98.8 F 08/09/25 08:15 Pulse 74 08/09/25 14:30 Resp 24 H 08/09/25 14:30 BP 147/81 08/09/25 14:15 Pulse Ox 93 08/09/25 14:30 O2 Del Method Nasal Cannula 08/09/25 14:30 O2 Flow Rate 3 08/09/25 14:30 FiO2 40 08/09/25 04:00 08/09/25 08/09/25 08/09/25 06:59 14:59 22:59 Intake Total 100 / 220 222 / 222 Output Total 700 / 2300 Balance -600 / -2080 222 / 222 Weight last 48 hrs Weight 208 lb 4.8 oz Weight 215 lb 3.2 oz Weight 215 lb 2.738 oz Weight 211 lb Weight 211 lb Physical Exam 2 Narrative: General: No apparent distress Neck: No carotid bruit bilaterally Muskuloskeletal: Full ROM Respiratory: Normal respiratory effort, bilateral posterior lobes fine crackles present, no use of accessory muscles Cardio: No JVD, regular rate, regular rhythm, S1 S2 normal, no murmurs, peripheral pulses 2+ radial palpated bilaterally Extremities: Full ROM, normal, normal capillary refill, no cyanosis, trace edema bilateral lower extremities Neuro: Alert and oriented x4, no focal motor deficits Psych: Affect normal, denies suicidal ideation, mental status grossly normal Skin: right groin site clean, dry, intact with small hematoma distal to insertion site area is soft and nontender, palpable 2+ femoral pulse Urinary Catheter Management: Sanches: Cath Placed During This Visit: yes Reason for Continuing Indwelling Catheter: Accurate Measurement of Urinary Output in Critically Ill Patients Urinary Catheter Date of Insertion: 08/08/25 Urinary Catheter Time of Insertion: 15:08 Data 08/09/25 05:10 08/09/25 11:58 A&P Assessment and plan 1. ST elevation (STEMI) myocardial infarction: 2. Obesity: 3. Systolic heart failure: 4. Bradycardia: Plan: Patient's EF is severely reduced at 30%. Patient had high LVEDP during procedure. She has diuresed well -2079. Slight bump in creatinine. Will decrease Lasix to 40 IV every 24 hours. Potassium has improved to 5.1 after 40 of Lasix. Patient denies chest pain or shortness of breath. Did discuss LifeVest with the patient and she is agreeable to this. We will go ahead and start low-dose Entresto today and continue goal-directed medical therapy as patient tolerates. Avoiding beta-rosio at this time due to patient has been having some episodes of bradycardia with ectopy. Could be due to abnormal potassium level. This has decreased since lasix dose. Will continue to monitor. PDMP PDMP Reviewed: Not Reviewed Attestations 2 Medical Necessity Statement*: I am expecting her stay to cross more than 2 midnights due to anterior STEMI requiring aggressive diuresis, bipap, O2 therapy, heart failure treatment. Coding Level of Care Code Acute Code for g Fwd Diagnoses ST elevation (STEMI) myocardial infarction I21.3 Obesity E66.9 Systolic heart failure I50.20 Bradycardia R00.1
--- NOTE | 2025-08-09 19:27 | ECG_ITS ---
[employer] Test Date: 2025-08-09 Pat Name: Yaritza Hernandez Department: Room: ICU01 Gender: Female Turkey Cleaner: : 1955 Requested By: Trung Wilkes Order Number: [id number] Reading MD: ANUM DILLARD Measurements Intervals [place] Rate: 150 P: 0 AK: 0 QRS: 230 QRSD: 69 T: -60 QT: 234 QTc: 369 Interpretive Statements ATRIAL FLUTTER/TACHYCARDIA WITH RAPID VENTRICULAR RESPONSE POSSIBLE RIGHT VENTRICULAR HYPERTROPHY [SOME/ALL OF: PROMINENT R IN V1, LATE TRANSITION, RAD, RAYMOND, SSS] ANTEROLATERAL MYOCARDIAL INFARCTION , OF INDETERMINATE AGE [40+ ms Q WAVE IN I/aVL/V3-V6] CRITICAL TEST RESULT Compared to ECG 08/09/2025 10:51:06 Sinus rhythm no longer present Myocardial infarct finding still present Electronically Signed On 08-10-2025 18:31:56 SERVICE AGENT by ANUM DILLARD [email or web address] [id number]
[2025-08-09] MEDS: amiodarone 150 MG/100 ML PREMIX 400 MG IV (19:45)
--- NOTE | 2025-08-09 19:59 | PC.NURSE ---
Afib RVR: Patient heart rate went up to 140s-150s, blood pressure remained stable, patient did complain of shortness of breath and oxygen dropped to 80s. Nasal canula titrated up to 6L from 3L. Ekg obtained and Dr. Gracia notified. Order recieved to start patient on amioderone drip. Drip started and heart rate is down to 90s still afib. Patient no longer complains of shortness of breath, RT placed patient on Bipap for the night.
--- NOTE | 2025-08-09 20:40 | PC.NURSE ---
Amioderone loading dose finished and patient had an episode of bradycardia in the 50s with some 2 second pauses. Patient then went back into afib in the 90s. Dr. Gracia notified and said to hold amioderone.
--- NOTE | 2025-08-09 23:32 | PC.NURSE ---
Patient has had some hyotension with maps under 65, patient has also only had 50ml of urine out so far this shift. Dr. Gracia notified and ordered levophed and give 60mg IVP lasix to be given once blood pressure comes up.
[2025-08-09] MEDS: norepinephrine 4 MG/250 ML BAG 7.5 MG IV (23:50)
[2025-08-10] VITALS (99 sets, daily range): BP systolic 82–128; BP diastolic 49–87; PULSE 81–125; RESP 14–29; TEMP 36.4–37.1; O2SAT 94–98
[2025-08-10] MEDS: FUROsemide 10 mg/mL SDV 4mL 40 MG IVP ×3 (01:18→16:14)
--- NOTE | 2025-08-10 01:31 | PC.NURSE ---
Dr. Gracia updated of patient's blood pressure, levophed titrated up to 4 and systolic now above 100. Dr. Gracia changed lasix order to 40mg now and still give the scheduled 40mg dose at 0500 in the morning.
[2025-08-10 02:53] LABS: Hematocrit 45.5 % (36-47); Hemoglobin 13.40 g/dL (11.27-16.99); Mean Corpuscular HGB Conc 29.5 g/dL (30-55); Mean Corpuscular Hemoglobin 27.4 pg (27-33); Mean Corpuscular Volume 93.0 fl (85-98); Nucleated Red Blood Cells % 0 %; Platelet Count 257 10^3/cmm (157-399); Red Blood Count 4.89 10^6/uL (3.85-5.65); White Blood Count 16.41 10^3/uL (3.29-11.43)
[2025-08-10 03:15] LABS: Anion Gap 15.0 (5-19); Blood Urea Nitrogen 29 mg/dL (8-23); Calcium 8.9 mg/dL (8.5-10.5); Carbon Dioxide 30 mmol/L (22-29); Chloride 98 mmol/L (98-107); Glucose 162 mg/dL (65-115); Osmolality Calculated 295 mOsm/kg (285-295); Potassium 5.0 mmol/L (3.5-5.1); Sodium 138 mmol/L (136-145)
[2025-08-10] MEDS: norepinephrine 4 MG/250 ML BAG 30 MG IV (10:44)
--- NOTE | 2025-08-10 12:30 | PC.SOCIAL ---
IMM UPDATED IMM dated and initialed, copy given to patient and copy placed in chart.
--- NOTE | 2025-08-10 19:36 | P.PN_ITS ---
<Statement entered by Cruz Gracia MD - 08/11/25 14:55> Patient was evaluated and cared for in conjunction with an advanced practice practitioner. I personally examined the patient and reviewed the chart and all pertinent data including imaging, telemetry, and laboratory results. I discussed the patient in detail with the advanced practice practitioner. Please see their note for complete H&P testing result and agreed upon plan of care for the patient. Subjective 2 Subjective: Patient had episode of afib rvr last night, pulmonary edema. Given amio bolus with IV lasix 40 and 60 mg. Patient converted back to sinus rhythm and shortness of breath improved. Sitting up in chair today. Awaiting life vest. Requiring levophed at 3. Vitals/I&O/Wt Last Vital Signs Temp 97.5 F L 08/10/25 05:20 Pulse 105 H 08/10/25 19:00 Resp 26 H 08/10/25 19:00 BP 84/55 08/10/25 19:00 Pulse Ox 95 08/10/25 19:00 O2 Del Method Nasal Cannula 08/09/25 18:00 O2 Flow Rate 3 08/09/25 18:00 FiO2 40 08/10/25 03:05 08/10/25 08/10/25 08/10/25 06:59 14:59 22:59 Intake Total 24.625 / 568.625 587.0 / 587.0 15 / 602.0 Output Total 800 / 1350 950 / 950 Balance -775.375 / -781.375 587.0 / 587.0 -935 / -348.0 Weight last 48 hrs Weight 209 lb 6.4 oz Weight 208 lb 4.8 oz Weight 215 lb 3.2 oz Physical Exam 2 Narrative: General: No apparent distress Neck: No carotid bruit bilaterally Muskuloskeletal: Full ROM Respiratory: Normal respiratory effort, bilateral posterior lobes fine crackles present, no use of accessory muscles Cardio: No JVD, regular rate, regular rhythm, S1 S2 normal, no murmurs, peripheral pulses 2+ radial palpated bilaterally Extremities: Full ROM, normal, normal capillary refill, no cyanosis, trace edema bilateral lower extremities Neuro: Alert and oriented x4, no focal motor deficits Psych: Affect normal, denies suicidal ideation, mental status grossly normal Skin: right groin site clean, dry, intact with small hematoma distal to insertion site area is soft and nontender, palpable 2+ femoral pulse Urinary Catheter Management: Sanches: Cath Placed During This Visit: yes Reason for Continuing Indwelling Catheter: Accurate Measurement of Urinary Output in Critically Ill Patients Urinary Catheter Date of Insertion: 08/08/25 Urinary Catheter Time of Insertion: 15:08 Data 08/10/25 02:34 08/10/25 02:34 A&P Assessment and plan 1. ST elevation (STEMI) myocardial infarction: 2. Obesity: 3. Systolic heart failure: 4. Bradycardia: 5. Paroxysmal A-fib: Plan: Patient's EF is severely reduced at 30%. Patient had high LVEDP during procedure. She has diuresed well -2079. Due to pulmonary edema will continue lasix 40q12. Hold Entresto for now as patient is requiring levophed. Will avoid beta rosio for now as patient had bradycardia after amio bolus. Continue aspirin and plavix, statin. Continue to wean levo as tolerated Will add GDMT when patient is euvolemic if tolerated. PDMP PDMP Reviewed: Not Reviewed Attestations 2 Medical Necessity Statement*: I am expecting her stay to cross more than 2 midnights due to anterior STEMI requiring aggressive diuresis, bipap, O2 therapy, heart failure treatment. Coding Level of Care Code Acute Code for [facility] Diagnoses ST elevation (STEMI) myocardial infarction I21.3 Obesity E66.9 Systolic heart failure I50.20 Bradycardia R00.1 Paroxysmal A-fib I48.0
[2025-08-10] MEDS: AMIODARONE HCL/D5W 900 MG/500 ML BAG 33.33 MG IV (20:20)
--- NOTE | 2025-08-10 20:40 | PC.NURSE ---
Dr. Ruvalcaba Rounded, new orders to restart levophed and place on amiodarone drip if patient went into a fib. Patient went into a fib and amiodarone drip started at 1.
[2025-08-11] VITALS (94 sets, daily range): BP systolic 87–128; BP diastolic 51–90; PULSE 82–114; RESP 13–43; TEMP 36.3–37.3; O2SAT 92–99
--- NOTE | 2025-08-11 02:44 | XRR_ITS ---
PROCEDURE INFORMATION: Exam: XR Chest Exam date and time: 08/11/2025 2:11 AM Age: 70 years old Clinical indication: Other vascular access device placement or adjustment; Central line, non-tunnelled; Prior surgery; Surgery date: Post-operative (0-2 days); Surgery type: Coronary stent; Check S/P central line placement TECHNIQUE: Imaging protocol: Radiologic exam of the chest. Views: 1 view. COMPARISON: No relevant prior studies available. FINDINGS: Tubes, catheters and devices: Right IJ catheter terminates in the SVC. Lungs: Unremarkable. No consolidation. Pleural spaces: Small left pleural effusion. Heart/Mediastinum: Unremarkable. No cardiomegaly. Bones/joints: Unremarkable. XR/XR chest 1V portable [id number] IMPRESSION: Small left pleural effusion.
--- NOTE | 2025-08-11 03:04 | PC.NURSE ---
New orders received from Dr. Ruvalcaba to have central line placed due to poor vascular access and needing levophed. Patient only had peripheral access line that was placed at beginning of shift due to having poor access sites and other IV infiltrations. Levophed infiltrated in right IV that was placed with ultrasound. New orders received to place nitroglycerin paste over the infiltrated area.
[2025-08-11] MEDS: nitroglycerin 1 gm/inch oint Pkt 1 INCH TOPICAL (03:14)
[2025-08-11] MEDS: alum-mag-hydroxide-sime 30 mL UDC PO (08:52)
[2025-08-11 12:51] LABS: Hematocrit 42.7 % (36-47); Hemoglobin 13.10 g/dL (11.27-16.99); Mean Corpuscular HGB Conc 30.7 g/dL (30-55); Mean Corpuscular Hemoglobin 27.5 pg (27-33); Mean Corpuscular Volume 89.7 fl (85-98); Nucleated Red Blood Cells % 0 %; Platelet Count 232 10^3/cmm (157-399); Red Blood Count 4.76 10^6/uL (3.85-5.65); White Blood Count 11.43 10^3/uL (3.29-11.43)
[2025-08-11] MEDS: metoprolol succinate ER (24 HR) 25 mg Tablet 12.5 MG PO (12:51)
[2025-08-11 13:13] LABS: Anion Gap 9.5 (5-19); Blood Urea Nitrogen 29 mg/dL (8-23); Calcium 9.0 mg/dL (8.5-10.5); Carbon Dioxide 35 mmol/L (22-29); Chloride 95 mmol/L (98-107); Creatinine Clr Calc Pharmacy 59.3255; Glucose 171 mg/dL (65-115); Osmolality Calculated 290 mOsm/kg (285-295); Potassium 4.5 mmol/L (3.5-5.1); Sodium 135 mmol/L (136-145)
--- NOTE | 2025-08-11 15:01 | P.PN_ITS ---
Subjective 2 Subjective: Patient had infiltrated IV and Levophed in the arm last night Overall feeling better today Vitals/I&O/Wt Last Vital Signs Temp 97.3 F L 08/11/25 14:00 Pulse 98 08/11/25 14:00 Resp 22 H 08/11/25 14:00 BP 116/74 08/11/25 14:00 Pulse Ox 97 08/11/25 14:00 O2 Del Method Nasal Cannula 08/11/25 14:00 O2 Flow Rate 2 08/11/25 14:00 FiO2 40 08/10/25 03:05 08/11/25 08/11/25 08/11/25 06:59 14:59 22:59 Intake Total 541.998 / 1366.748 Output Total 400 / 1350 Balance 141.998 / 16.748 Weight last 48 hrs Weight 200 lb 9.93 oz Weight 200 lb 9.93 oz Weight 209 lb 6.4 oz Physical Exam 2 Const: OTHER: GENERAL: Patient is alert, awake and oriented x3. Moderate distress HEART: Regular S1 and S2. No murmur, rub or gallop. LUNGS: Clear to auscultate bilaterally. CENTRAL NERVOUS SYSTEM: Grossly nonfocal. EXTREMITIES: Lower extremities with out edema bilaterally. Urinary Catheter Management: Sanches: Cath Placed During This Visit: yes Reason for Continuing Indwelling Catheter: Accurate Measurement of Urinary Output in Critically Ill Patients Urinary Catheter Date of Insertion: 08/08/25 Urinary Catheter Time of Insertion: 15:08 Data 08/11/25 12:39 08/11/25 12:39 A&P Assessment and plan 1. ST elevation (STEMI) myocardial infarction: 2. Obesity: 3. Systolic heart failure: 4. Bradycardia: 5. Paroxysmal A-fib: 6. LV dysfunction: Due to ST elevation [place]/ischemic cardiomyopathy left ventricle ejection fraction by echocardiogram and LV gram was noted to be less than 35%, guideline medical therapy such as Entresto was added will add beta-rosio once tolerate blood pressure twice, she is on diuretics. At this point we recommend LifeVest for 2 days for primary prevention. Plan: Patient was diuresed, yesterday, Lasix were held since blood pressure is on the lower side at the same time she was becoming dry Entresto was on hold as well Had episodes of atrial fibrillation for which she was given IV amiodarone, she infiltrated IV with Levophed and amiodarone. Central line was placed, amiodarone was switched to p.o. 200 mg, infiltrative Levophed was treated with topical nitroglycerin, this morning no vascular necrosis and or ischemia noted on the right arm with the IV was infiltrated Due to the episodes of atrial fibrillation at this point I will start patient on apixaban Add beta-rosio metoprolol succinate 12.5 mg in the morning, continue amiodarone p.o. 20 mg in the evening Check BMP and use Lasix as as needed, oxygen demand has reduced, today lungs are clear. Due to severely depressed left ventricular ejection fraction less than 35% post [place] we recommend LifeVest PDMP PDMP Reviewed: Not Reviewed Attestations 2 Medical Necessity Statement*: Patient require continuation hospitalization for above defined care Coding Level of Care Code Acute Code for [facility] Diagnoses ST elevation (STEMI) myocardial infarction I21.3 Obesity E66.9 Systolic heart failure I50.20 Bradycardia R00.1 Paroxysmal A-fib I48.0 LV dysfunction I51.9
--- NOTE | 2025-08-11 15:02 | ECG_ITS ---
[facility]11 Pat Name: Yaritza Hernandez Department: Room: ICU01 Gender: Female Chemistry Instructor: : 1955 Requested By: Cruz Gracia Order Number: [id number] Sammy MD: Saran Raza M.D. Measurements Intervals [place] Rate: 93 P: 0 MD: 0 QRS: 171 QRSD: 97 T: 83 QT: 365 QTc: 454 Interpretive Statements ATRIAL FLUTTER POSSIBLE RIGHT VENTRICULAR HYPERTROPHY [SOME/ALL OF: PROMINENT R IN V1, LATE TRANSITION, RAD, RAYMOND, SSS] ANTEROLATERAL MYOCARDIAL INFARCTION , PROBABLY RECENT [40+ ms Q WAVE IN I/aVL/V3-V6] ACUTE MA Compared to ECG 08/09/2025 19:26:27 NO SIGNIFICANT CHANGE Electronically Signed On 08-11-2025 19:58:08 TANK BUILDER SUPERVISOR by Saran Raza M.D. [id number] [id number]
--- NOTE | 2025-08-11 17:49 | PC.NURSE ---
Shift Summary: Ambulation: Intermittently up to a chair, about 4 hours total. AMbulated approximately 125 feet today. Heart rhythm remains controlled afib during ambulation. Patient reported no difficulties, but was rather slow with walking. Started on amidarone, metoprolol, and lovenox due to afib. Skin: swelling and a diffuse bruise to the right wrist puncture site observed upon morning assessment. Site remains unchanged, no evidence of new bleeding. Cath site to right groin has a diffuse bruise distal to the site, no hematoma palpable. Unchanged since morning assessment. RIght upper arm has redness at site of levophed infiltration. Creatinine improved from 1.3 to 0.9 Total urine output: 525mL. An increase compared to previous shift.
--- NOTE | 2025-08-11 19:08 | PC.NURSE ---
Physician Communication Dr. Gracia at bedside; verbal orders received for an additional dose of 40 mg lasix IVP now as well as an additional dose of 200 mg amio PO now. Further order received to change scheduled PO amiodarone to BID.
[2025-08-11] MEDS: FUROsemide 10 mg/mL SDV 4mL 40 MG IVP (19:24)
[2025-08-12] VITALS (142 sets, daily range): BP systolic 86–131; BP diastolic 49–93; PULSE 43–106; RESP 13–34; TEMP 36.4–37.3; O2SAT 88–98
--- NOTE | 2025-08-12 04:06 | PC.NURSE ---
BMP No morning labs ordered. Dr. Gracia contacted; order received to obtain BMP.
[2025-08-12] MEDS: metoprolol succinate ER (24 HR) 25 mg Tablet 12.5 MG PO (04:26)
[2025-08-12 04:54] LABS: Anion Gap 10.0 (5-19); Blood Urea Nitrogen 28 mg/dL (8-23); Calcium 8.9 mg/dL (8.5-10.5); Carbon Dioxide 38 mmol/L (22-29); Chloride 97 mmol/L (98-107); Creatinine Clr Calc Pharmacy 59.3255; Glucose 135 mg/dL (65-115); Osmolality Calculated 300 mOsm/kg (285-295); Potassium 4.0 mmol/L (3.5-5.1); Sodium 141 mmol/L (136-145)
--- NOTE | 2025-08-12 14:28 | P.PN_ITS ---
Subjective 2 Subjective: Feeling better Off any pressors blood pressure remains stable and good She is off oxygen as well and at room air saturating more than 90 Vitals/I&O/Wt Last Vital Signs Temp 98.1 F 08/12/25 13:00 Pulse 91 08/12/25 14:15 Resp 16 08/12/25 14:15 BP 117/79 08/12/25 14:15 Pulse Ox 93 08/12/25 14:15 O2 Del Method Room Air 08/12/25 13:00 O2 Flow Rate 1 08/12/25 07:15 FiO2 40 08/10/25 03:05 08/11/25 08/12/25 08/12/25 22:59 06:59 14:59 Intake Total 800 / 800 240 / 240 Output Total 525 / 525 1550 / 2075 275 / 275 Balance 275 / 275 -1550 / -1275 -35 / -35 Weight last 48 hrs Weight 202 lb 12.8 oz Weight 200 lb 9.93 oz Weight 200 lb 9.93 oz Physical Exam 2 Const: OTHER: GENERAL: Patient is alert, awake and oriented x3. HEART: Regular S1 and S2. No murmur, rub or gallop. LUNGS: Clear to auscultate bilaterally. CENTRAL NERVOUS SYSTEM: Grossly nonfocal. EXTREMITIES: Lower extremities with out edema bilaterally. Urinary Catheter Management: Sanches: Cath Placed During This Visit: yes Reason for Continuing Indwelling Catheter: Accurate Measurement of Urinary Output in Critically Ill Patients Urinary Catheter Date of Insertion: 08/08/25 Urinary Catheter Time of Insertion: 15:08 Data 08/11/25 12:39 08/12/25 04:20 A&P Assessment and plan 1. ST elevation (STEMI) myocardial infarction: 2. Obesity: 3. Systolic heart failure: 4. Bradycardia: 5. Paroxysmal A-fib: 6. LV dysfunction: Due to ST elevation [place]/ischemic cardiomyopathy left ventricle ejection fraction by echocardiogram and LV gram was noted to be less than 35%, guideline medical therapy such as Entresto was added will add beta-rosio once tolerate blood pressure twice, she is on diuretics. At this point we recommend LifeVest for 2 days for primary prevention. Plan: On today's visit dated 08/12/2025 Patient overall doing fine from a cardiovascular perspective she is euvolemic now. She is off oxygen and pressors. At this point we will optimize medication specially with guideline medical therapy for heart failure and for A-fib Increase amiodarone to 200 mg p.o. twice daily Continue metoprolol succinate 12.5 mg once a day Lasix will switch to 40 mg p.o. once a day from tomorrow Potassium chloride 20 mEq once a day Stop Lovenox and switch patient to Eliquis Since patient will be on aspirin Plavix and Eliquis therefore at this point we will add PPI in the form of Protonix Plan is to stop aspirin after 1 month and continue Plavix and Eliquis Will restart Entresto since blood pressure is improved LifeVest upon discharge has already been installed Patient can move out of the unit Hopefully if patient remains stable discharge tomorrow We will follow-up in 7 to 10 days PDMP PDMP Reviewed: Not Reviewed Attestations 2 Medical Necessity Statement*: Patient require continued hospitalization for above defined care. Coding Level of Care Code Acute Code for [facility] Diagnoses ST elevation (STEMI) myocardial infarction I21.3 Obesity E66.9 Systolic heart failure I50.20 Bradycardia R00.1 Paroxysmal A-fib I48.0 LV dysfunction I51.9
--- NOTE | 2025-08-12 16:50 | PC.NURSE ---
Shift SUmmary: Activity: Ambulated 3 times today. Approximately 200 feet each time, much easier time than yesterday. When asked, patient states that at her current activity level she is able to complete her ADLs and feels that she can safely go home. Started on entresto today. Sanches catheter removed Central line dressing changed. Heart rhythm: Remains in controlled afib. Rate usually around 80-90 bpm. Has some brief periods of normal sinus.
--- NOTE | 2025-08-12 23:39 | PC.NURSE ---
Addendum entered by THOMAS Conway 08/13/25 01:00: notified, gave orders to administer atropine if patients heartrate sustains in the 30s if awake and to keep patient on 2L nasal canula. Addendum entered by THOMAS Conway 08/13/25 00:16: Patient awoke with complaints of back pain described as an intermittent dull ache. No other symptoms. EKG obtained per protocol. notified. Original Note: notified patient converted to sinus rhythm at 2327 with asymptomatic sustained bradycardia. Provider gave orders to hold 0500 Amiodarone and Metoprolol. Also ordered to not administer atropine due to patient being asymptomatic. Patient is asleep in bed with respirations of 22.
[2025-08-13] VITALS (63 sets, daily range): BP systolic 88–143; BP diastolic 43–95; PULSE 42–87; RESP 12–34; TEMP 36.6–37; O2SAT 82–98
--- NOTE | 2025-08-13 00:05 | ECG_ITS ---
[facility] Test Date: 2025-08-13 Pat Name: Yaritza Hernandez Department: Room: ICU01 Gender: Female Monorail Hooker: : 1955 Requested By: Trung Wilkes Order Number: [id number] Sammy MD: Hebert Alejandra M.D. Measurements Intervals [place] Rate: 66 P: 74 [place]: 176 QRS: 248 QRSD: 66 T: 0 QT: 365 QTc: 383 Interpretive Statements SINUS RHYTHM RIGHT AXIS DEVIATION [QRS AXIS > 100] ANTEROSEPTAL MYOCARDIAL INFARCTION , OF INDETERMINATE AGE [40+ ms Q WAVE IN V1-V4] ST DEPRESSION, CONSIDER SUBENDOCARDIAL INJURY [0.1+ mV ST DEPRESSION] Compared to ECG 08/11/2025 15:37:38 Right-axis deviation now present ST (T wave) deviation now present Atrial flutter no longer present Myocardial infarct finding still present Electronically Signed On 08-14-2025 21:39:03 RETAIL INTERIOR DESIGNER by Hebert Alejandra M.D. [id number] [id number]
[2025-08-13 04:22] LABS: Anion Gap 9.7 (5-19); Blood Urea Nitrogen 32 mg/dL (8-23); Calcium 9.0 mg/dL (8.5-10.5); Carbon Dioxide 36 mmol/L (22-29); Chloride 95 mmol/L (98-107); Glucose 134 mg/dL (65-115); Osmolality Calculated 293 mOsm/kg (285-295); Potassium 3.7 mmol/L (3.5-5.1); Sodium 137 mmol/L (136-145)
--- NOTE | 2025-08-13 11:25 | PC.SOCIAL ---
IMM Updated Updated pt on IMM. No questions voiced. Provided pt a copy. Initialed, dated, & timed copy in chart.
--- NOTE | 2025-08-13 12:28 | PC.NURSE ---
Ambulation: Patient's heart rate is in the mid 50's frequently going down into the 40's. Asymptomatic. At 0830, nurse ambulated patient throughout unit. approximately 200 feet. With increase in activity, heart rate increased to approximately 65 and remained normal sinus. However, patient does report feeling weaker and less steady than yesterday. Patient's gait and speed also reflect this. Dr Gracia is considering discharge today. Would like an update around 1200 on activity, and heart rate.
--- NOTE | 2025-08-13 12:31 | PC.NURSE ---
AMbularion: Patient's heart rate at rest is similar to earlier today. In the mid 50's, occasionally going down into the high 40's, but less so than before. Nurse again ambulated patient at 1215. heart rate approximately 75 and normal sinus with activity. Patient's ambulation was much better than this morning. Much better coordination and strength. Patient states that she thinks she is physically capable of completing ADLs and is safe to go home. NUrse contacted Dr floyd with an update on patient. Told Dr Floyd that the patient thinks she is physically ready to go home, but the nurse also thinks it would be best to monitor the patient for a few more hours and ambulate her once again to ensure her stength and coordination maintain. Dr floyd requested a call again around 1445 after another ambulation session. Will likely discharge at that point.
--- NOTE | 2025-08-13 13:20 | ECG_ITS ---
[facility] Test Date: 2025-08-13 Pat Name: Yaritza Hernandez Department: Room: ICU01 Gender: Female Drapery Inspector: : 1955 Requested By: Cruz Gracia Order Number: [id number] Sammy MD: Hebert Alejandra M.D. Measurements Intervals [place] Rate: 95 P: 0 MI: 0 QRS: 225 QRSD: 69 T: -68 QT: 365 QTc: 460 Interpretive Statements ATRIAL FLUTTER/TACHYCARDIA POSSIBLE RIGHT VENTRICULAR HYPERTROPHY [SOME/ALL OF: PROMINENT R IN V1, LATE TRANSITION, RAD, RAYMOND, SSS] ANTEROSEPTAL MYOCARDIAL INFARCTION , OF INDETERMINATE AGE [40+ ms Q WAVE IN V1-V4] MODERATE T-WAVE ABNORMALITY, CONSIDER LATERAL ISCHEMIA [-0.1+ mV T-WAVE IN I/aVL/V5/V6].MODERATE T-WAVE ABNORMALITY, CONSIDER INFERIOR ISCHEMIA [-0.1+ mV T-WAVE IN II/aVF] Compared to ECG 08/13/2025 00:05:20 T-wave abnormality now present.Possible ischemia now present Sinus rhythm no longer present.Right-axis deviation no longer present ST (T wave) deviation no longer present.Myocardial infarct finding still present Electronically Signed On 08-14-2025 21:52:31 CLIENT MANAGER LARGE LAW by Hebert Alejandra M.D. [email or web address] [id number]
--- NOTE | 2025-08-13 13:48 | PC.NURSE ---
Addendum entered by Walt Dunham RN 08/13/25 13:53: Nurse also notified nurse practitioner denisse garcia. WIll proceed with original discharge plan, but will change the home dose of amiodarone from daily to BID. WIll be a conditional discharge, condition will be that patient must be able to maintain controlled a flutter/afib with activity. NUrse will ambulate after we give the one time dose of amiodarone. Original Note: A flutter: At 1312, patient reported palpitations felt in chest. This coincided with entering into what appeared to be aflutter with RVR, rate in the 120's, but there was a lot of artifact making it difficult to determine. Patient is asymptomatic. Within 30 seconds, of developing a flutter with RVR, the heart rate decreased to be a controlled aflutter, rate usualy within the 80's. EKG performed which shows a flutter, transmitted ekg to Dr floyd. Nurse called Dr floyd, and reminded him that the morning dose of metoprolol and amiodarone were held due to bradycardia. Recived orders for one time dose of amiodarone. He will adjust her discharge medications.
--- NOTE | 2025-08-13 14:27 | P.DS_ITS ---
<Statement entered by Cruz Gracia MD - 08/15/25 22:45> Patient was evaluated and cared for in conjunction with an advanced practice practitioner. I personally examined the patient and reviewed the chart and all pertinent data including imaging, telemetry, and laboratory results. I discussed the patient in detail with the advanced practice practitioner. Please see their note for complete H&P testing result and agreed upon plan of care for the patient. Discharge Providers Date of Admission: 08/08/25 13:40 Date of Discharge: August 13, 2025 Attending Provider at Admission: Cruz Gracia MD Attending Provider at Discharge: Cruz Gracia MD Primary Care Provider: Norma Retana DO Diagnoses at Discharge Discharge Diagnosis 1. ST elevation (STEMI) myocardial infarction: 2. Obesity: 3. Systolic heart failure: 4. Bradycardia: 5. Paroxysmal A-fib: 6. LV dysfunction: Reason for Visit Reason for Visit: Chest Pain Brief History: This is a 70-year-old female past medical history significant for hypothyroidism obesity, type 2 diabetes started having chest pain around noon that day in which it became more severe and intense and she called EMS. Twelve-lead EKG showed ST elevation in the high lateral leads with reciprocal inferior ST depression. STEMI alert was called. Patient was loaded with 600 mg of Plavix and 4000 units of heparin. Urgent left heart cath was performed. Hospital Course Hospital Course Urgent left heart cath was performed and total occlusion of the LAD which was treated with drug-eluting stents, EF was severely reduced at 20%, RCA was 40% stenosed, first diagonal totally occluded. Patient developed pulmonary edema post cath requiring IV Lasix, levo, and diuresis. She responded well to this and O2 was no longer required. Post cath she developed A-fib with RVR and was given amiodarone bolus and converted back to sinus rhythm but also had bradycardia. At that time potassium levels were elevated. Lasix was given and potassium returned to normal. Patient was placed on amiodarone for rhythm control. Beta-rosio will be held due to bradycardia. Eliquis 5 twice daily was initiated for stroke prophylaxis. LifeVest was placed as well. Patient will be on triple therapy including aspirin, plavix, and Eliquis x1 month then after december d/c aspirin and continue Plavix and Eilquis. After 1 year, will decide if Plavix can be discontinued and aspirin started in its place again. PPI given to prevent GI bleed. Physical Exam Narrative: General: No apparent distress Muskuloskeletal: Full ROM Respiratory: Normal respiratory effort, clear throughout all lung hawley, no use of accessory muscles Cardio: No JVD, regular rate, regular rhythm, S1 S2 normal, no murmurs, peripheral pulses 2+ radial palpated bilaterally Extremities: Full ROM, normal, normal capillary refill, no cyanosis, trace edema bilateral lower extremities Neuro: Alert and oriented x4, no focal motor deficits Psych: Affect normal, denies suicidal ideation, mental status grossly normal Skin: right groin site clean, dry, intact Urinary Catheter Management: Sanches: Cath Placed During This Visit: yes, but has since been removed by the nurse Reason for Continuing Indwelling Catheter: Decision to DC Catheter Urinary Catheter Date of Insertion: 08/08/25 Urinary Catheter Time of Insertion: 15:08 Date Urinary Catheter Removed: 08/12/25 Time Urinary Catheter Discontinued: 15:49 Discharge Data Studies Completed and Pending Completed Studies During Hospitalization Category Date Time Status GAS ATTENDANT request for service Stat Exams 08/08/25 13:01 Completed XR chest 1V portable [id number] Stat Exams 08/11/25 02:44 Completed US echo complete [CV. echo complete* [id number]] Routine Ultrasound 08/08/25 14:32 Completed Radiology Impressions Chest X-Ray 08/11/25 02:44 IMPRESSION: Small left pleural effusion. Laboratory Results WBC 11.43 10^3/uL (3.29-11.43) 08/11/25 12:39 RBC 4.76 10^6/uL (3.85-5.65) 08/11/25 12:39 Hgb 13.10 g/dL (11.27-16.99) 08/11/25 12:39 Hct 42.7 % (36-47) 08/11/25 12:39 MCV 89.7 fl (85-98) 08/11/25 12:39 MCH 27.5 pg (27-33) 08/11/25 12:39 MCHC 30.7 g/dL (30-55) 08/11/25 12:39 RDW 15.2 % (12.1-15.1) H 08/11/25 12:39 Plt Count 232 10^3/cmm (157-399) 08/11/25 12:39 MPV 10.9 fL (7.4-10.4) H 08/11/25 12:39 Neut % (Auto) 79.8 % 08/11/25 12:39 Lymph % (Auto) 10.4 % 08/11/25 12:39 [place] % (Auto) 7.0 % 08/11/25 12:39 Eos % (Auto) 1.7 % 08/11/25 12:39 Baso % (Auto) 0.6 % 08/11/25 12:39 Neut # (Auto) 9.11 10^3/uL (1.8-7.7) H 08/11/25 12:39 Lymph # (Auto) 1.2 10^3/uL (0.8-4.8) 08/11/25 12:39 [place] # (Auto) 0.8 10^3/uL (0.2-0.9) 08/11/25 12:39 Eos # (Auto) 0.2 10^3/uL (0.0-0.8) 08/11/25 12:39 Baso # (Auto) 0.1 10^3/uL (0.0-0.1) 08/11/25 12:39 Nucleated RBC % (auto) 0 % 08/11/25 12:39 Nucleated RBCs # 0.0 /100WBC 08/11/25 12:39 APTT 25.8 SECONDS (23.9-36.7) D 08/08/25 23:24 Sodium 137 mmol/L (136-145) 08/13/25 03:27 Potassium 3.7 mmol/L (3.5-5.1) 08/13/25 03:27 Chloride 95 mmol/L (98-107) L 08/13/25 03:27 Carbon Dioxide 36 mmol/L (22-29) H 08/13/25 03:27 Anion Gap 9.7 (5-19) 08/13/25 03:27 BUN 32 mg/dL (8-23) H 08/13/25 03:27 Creatinine 1.0 mg/dL (0.5-0.9) H 08/13/25 03:27 GFR Calculation 55.0 mL/min (90-130) L 08/13/25 03:27 Glucose 134 mg/dL (65-115) H 08/13/25 03:27 Estimat Average Glucose 148 08/09/25 05:10 Hemoglobin A1c 6.8 % (4.0-6.0) H 08/09/25 05:10 Calculated Osmolality 293 mOsm/kg (285-295) 08/13/25 03:27 Calcium 9.0 mg/dL (8.5-10.5) 08/13/25 03:27 Magnesium 2.9 mg/dL (1.7-2.3) H 08/09/25 05:10 Total Bilirubin 0.4 mg/dL (0.15-1.2) 08/09/25 05:10 AST 506 U/L (0-32) H 08/09/25 05:10 ALT 111 U/L (0-33) H 08/09/25 05:10 Alkaline Phosphatase 104 U/L (35-105) 08/09/25 05:10 Troponin T Baseline 3340 ng/L (0-10) H* 08/08/25 15:14 Troponin T 60 Minute 4794 ng/L (0-10) H 08/08/25 16:25 Delta Troponin T 1454 ABS# (0-10) H* 08/08/25 16:25 Troponin T Hi Sens 6Hr > 28113 ng/L (0-10) H 08/08/25 21:12 Troponin T Hi Sens 6Hr Delta 6660.30922 ng/L (0-12) H* 08/08/25 21:12 Total Protein 7.2 g/dL (6.6-8.7) 08/09/25 05:10 Albumin 3.8 g/dL (3.5-5.2) 08/09/25 05:10 Globulin 3.4 g/dL (1.3-4.6) 08/09/25 05:10 Triglycerides 153 mg/dL (0-150) H 08/09/25 05:10 Cholesterol 202 mg/dL (0-200) H 08/09/25 05:10 LDL Cholesterol, Calc 129 mg/dL (50-129) 08/09/25 05:10 HDL Cholesterol 42 mg/dL (60-100) L 08/09/25 05:10 LDL/HDL Ratio 3.07 RATIO (0.00-3.22) 08/09/25 05:10 Cholesterol/HDL Ratio 4.81 mg/dL (0.0-4.40) H 08/09/25 05:10 Lipase 27 U/L (13-60) 08/08/25 13:12 Procedures Performed 08/08/25- Left heart cath Conclusions 1. There is total occlusion coronary artery disease with two vessel disease. 2. The septal and anterior rizzo are akinetic. 3. The apex in the VILLALTA view is akinetic. 4. Severe left ventricular systolic dysfunction. Ejection fraction of 20%. 5. Proximal Left Anterior Descending to Mid Left Anterior Descending was treated with a Balloon, Drug Eluting Stent, and Balloon. 6. Mid Left Anterior Descending was treated with a Drug Eluting Stent, and Balloon. Vitals Last Vital Signs Temp 97.9 F 08/13/25 07:15 Pulse 84 08/13/25 14:00 Resp 18 08/13/25 14:00 BP 123/67 08/13/25 14:00 Pulse Ox 93 08/13/25 14:00 O2 Del Method Room Air 08/13/25 14:00 O2 Flow Rate 2 08/13/25 09:45 FiO2 40 08/10/25 03:05 Discharge Plan Discharge Patient Disposition: Home Condition: Stable Prescriptions: New amiodarone [Pacerone] 200 mg Tablet 200 mg PO BIDWM Qty: 60 2RF furosemide 40 mg Tablet 40 mg PO DAILY Qty: 30 0RF atorvastatin 40 mg Tablet 80 mg PO BEDTIME Qty: 90 0RF clopidogrel 75 mg Tablet 75 mg PO DAILY Qty: 90 3RF aspirin 81 mg Tablet,Delayed Release (Dr/Ec) 81 mg PO DAILY Qty: 90 3RF pantoprazole 40 mg Tablet,Delayed Release (Dr/Ec) 40 mg PO DAILY Qty: 90 0RF Eliquis 5 mg Tablet 5 mg PO BID Qty: 60 3RF sacubitril-valsartan [Entresto] 24-26 mg Tablet 1 tab PO BID Qty: 60 0RF potassium chloride [K-Tab] 20 mEq tablet extended release 20 meq PO DAILY Qty: 30 0RF Continued albuterol sulfate 90 mcg/actuation HFA aerosol inhaler 1 inh inhalation QID PRN (Reason: shortness of breath or wheezing) Qty: 6.7 2RF latanoprost 0.005 % drops 1 drp ophthalmic (eye) BEDTIME levothyroxine 137 mcg tablet 137 mcg PO QAM fluticasone propion-salmeterol [Advair HFA] 45-21 mcg/actuation HFA aerosol inhaler 2 puff INHALATION Q6H PRN (Reason: Shortness Of Breath) prednisone 20 mg tablet 40 mg PO DAILY PRN (Reason: asthma) fluticasone propionate [Flonase Allergy Relief] 50 mcg/actuation spray,suspension 2 spray intranasal DAILY PRN (Reason: allergies) Rx Instructions: administer into each nostril Referrals: Heidy Gómez FNP [Nurse Practitioner, Cardiology] - 08/31/25 10:00 am Norma Retana DO [Primary Care Provider, [facility]] Discharge Diet: Cardiac Discharge Activity: Limit activity as instructed Patient Instructions: Bradycardia, Furosemide (By mouth), Potassium Chloride (By mouth) (K-Dur, K-Stephanie, K-Tab, Michael Mur), Aspirin (By mouth), Amiodarone (By mouth), Atorvastatin (By mouth), Clopidogrel (By mouth), Pantoprazole (By mouth), Apixaban (By mouth), Sacubitril/Valsartan (By mouth), Coronary Angioplasty (DC), Chest Pain Stoplight, Opioid Safety, Post Angiogram Home Care Instructions, Patient Portal & Hermilo Instructions Activity Restrictions/Additional Instructions: Discussed with patient no heavy lifting more than a gallon of milk as well as going up or down steps for 3 days. No driving for 3 days. Monitor for and report signs or symptoms of bleeding. Monitor for and report s/s of infection such as fever 101 or greater, swelling, redness or pain to the groin. Discharge Attestations Time Spent in Discharge Care*: greater than 30 min Quality Metrics Clinical Quality Measures [ No reported AMI, CVA or VTE this stay] Coding Level of Care Code Acute Code for [facility] Diagnoses ST elevation (STEMI) myocardial infarction I21.3 Obesity E66.9 Systolic heart failure I50.20 Bradycardia R00.1 Paroxysmal A-fib I48.0 LV dysfunction I51.9
--- NOTE | 2025-08-13 15:08 | PC.NURSE ---
COnditional discharge requirements: AMbulated patient at 1418. Patient maintains controlled a-flutter with activity. Heart rate between 90-100 with ambulation. Patient has good mobility and coordination. states that she feels comfortable going home at current activity level. Nurse alerted Krystal BLUE to the above information. Okay to proceed with discharge.
--- NOTE | 2025-08-13 16:09 | PC.NURSE ---
Discharged patient. Central line removed. New appointment, medication, and activity restriction education reviewed with the patient, her , and her daughter. Life vest and monitor car operator applied before discharge. Nurse reassess both femoral and radial access sites. dressing clean and dry. sites are unremarkable. Patient signature form signed.
--- NOTE | 2025-08-13 16:46 | PC.NURSE ---
REceived call after discharge. Patient states that [facility] does not have any of their medications in stock. Nurse called [facility] and verified that they do have the prescriptions in [place]. prescriptions sent to [facility] pharmacy and notified the patient of new pickup location
== END 2025-08-13 16:12 | disposition home or self-care (01) | DRG 321 ==
LOC: ER 13:13 → CCL 13:16 → ICU 13:40
PROVIDERS: Nurse Practitioner Family; Admitting Provider Internal Medicine Cardiovascular Disease; Emergency Provider Emergency Medicine; Family Provider Family Medicine; PCP Family Medicine; Visit Provider Internal Medicine Cardiovascular Disease
PROC: 027035Z Dilation of Coronary Artery, One Artery with Two Drug-eluting Intraluminal Devices, Percutaneous Approach (ICD-10-PCS; principal; 2025-08-08 13:15)
PROC: 027035Z Dilation of Coronary Artery, One Artery with Two Drug-eluting Intraluminal Devices, Percutaneous Approach (ICD-10-PCS; 2025-08-08 13:15)
DX: I21.19 ST elevation (STEMI) myocardial infarction involving other coronary artery of inferior wall (principal); I50.21 Acute systolic (congestive) heart failure; E66.9 Obesity, unspecified; I11.0 Hypertensive heart disease with heart failure; I25.5 Ischemic cardiomyopathy; I48.0 Paroxysmal atrial fibrillation; E11.9 Type 2 diabetes mellitus without complications; R00.1 Bradycardia, unspecified; E03.9 Hypothyroidism, unspecified; Z68.39 Body mass index [BMI] 39.0-39.9, adult; Z79.899 Other long term (current) drug therapy; Z79.890 Hormone replacement therapy
CPT/HCPCS: 36415; 36592; 51702; 71045; 80048; 80053; 80061; 83036; 83690; 83735; 84132; 84484; 85025; 85347; 85730; 93005; 93306; 93458; 94660; 96372; 96374; 96375; 99152; 99153; 99285; C1725; C1751; C1757; C1769; C1874; C1887; C1894; C9606; J0282; J0283; J1644; J1650; J1938; J2250; J2270; J2405; J3010; J3475; J3490; J7030; J9999; Q9967